=== PATIENT | male | born 1945 | race Caucasian/White ===

== ENCOUNTER 2024-01-01 10:15 | Outpatient (RCR) | payer MEDICARE, BC, SELFPAY | END 2024-02-22 15:43 | disposition home or self-care (01) | PROVIDERS: PCP Surgery; Visit Provider Surgery | DX: M25.552 Pain in left hip (principal); Z51.89 Encounter for other specified aftercare | CPT/HCPCS: 97110; 97161 ==

== ENCOUNTER 2024-11-10 18:13 | Emergency (ER) | payer MEDICARE, BC, SELFPAY ==
--- OUTSIDE RECORDS SUMMARY | 2024-11-10 18:15 | XMS_ITS | Encounter Summary ---
Author Organization [facility] Address [address] [place] [address] Care Team Providers Care Advice Nurse Name Role Phone Unavailable Primary Care Provider Unavailabl e Reason for Referral * Outpatient (Routine) - Closed Specialty Diagnoses / Procedures Referred By Contac t Referred To Contact Diagnoses Obstruction Intestinal (HCC) Procedures URO Urethral cath removal voiding trial (VT) Tiffany Toure M.D., M.S. [address] [place] [phone] Phone: tel: fax: [facility] Referral ID Status Reason Start Date Expiration Date Visits Re quested Visits Authorized [id number] Closed 09/17/2024 12/18/2025 1 1 * Outpatient (Routine) - Closed Specialty Diagnoses / Procedures Referred By Contac t Referred To Contact Urology Diagnoses Obstruction Intestinal (HCC) Tiffany Toure M.D., M.S. [address] [place] [phone] Phone: tel: fax: Eusebia Dhaliwal M.D. [address] [place] [phone] Phone: tel: fax: Referral ID Status Reason Start Date Expiration Date Visits Re quested Visits Authorized [id number] Closed 09/17/2024 03/19/2026 1 1 Encounter Details Date Type Department Care Team (Late st Contact Info) Description 09/17/2024 Clinical Communication [facility] [address] [place] [phone] JulesRenitachencho Linn Social History Tobacco Use Types Packs/Day Years Used Date Smoking Tobacco: Former Cigarettes 0 06/26/1966 - 04/24/1980 Smokeless Tobacco: Never Alcohol Use Standard Drinks/Week Comments Yes 12 (1 standard drink = 0.6 oz pu re alcohol) [facility] Utilities Answer Date Recorded In the past 12 months has [facility] [employer], gas, oil, or water [employer] threatened to shut off services in your home? No 09/17/2024 Humiliation, Afraid, Rape, and Kick questionnair e Answer Date Recorded Within the last year, have y ou been afraid of your partner or ex-partner? No 09/17/2024 Within the last year, have y ou been humiliated or emotionally abused in other ways by your partner or ex-partner? No Within the last year, have y ou been kicked, hit, slapped, or otherwise physically hurt by your partner or ex-partner? No 09/17/2024 Within the last year, have y ou been raped or forced to have any kind of sexual activity by your partner or ex-partner? No 09/17/2024 Exercise Vital Sign Answer Date Recorde d On average, how many days pe r week do you engage in moderate to strenuous exercise (like a brisk walk)? 3 days 04/20/2024 On average, how many minutes do you engage in exercise at this level? 60 min 04/20/2024 Hunger Vital Sign Answer Date Recorded Within the past 12 months, y ou worried that your food would run out before you got the money to buy more. Never true 09/18/19 25 Within the past 12 months, t he food you bought just didn't last and you didn't have money to get more. Never true 09/17/2024 PRAPARE - Transportation Answer Date Re corded In the past 12 months, has l ack of transportation kept you from medical appointments or from getting medications? No 08/25 In the past 12 months, has l ack of transportation kept you from meetings, work, or from getting things needed for daily living? No 09/17/2024 Nutrition Answer Date Recorded On average, how many serving s of fruits and vegetables do you eat per day (serving size is equal to 1 cup or approximately the size of a tennis ball)? 3-5 04/20/2024 Dental Answer Date Recorded Dental: Regular Dentist Yes 04/20/20 Employment Answer Date Recorded Employment status Retired 04/20/2024 Housing Stability Answer Date Recorded What is your living situation today? 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 Gender Identity Male 04/20/2024 9:38 AM CDT Sexual Orientation Straight 04/20/2024 9: 38 AM CDT documented as of this encounter Plan of Treatment Scheduled Orders Name Type Priority Associated Diagnoses Orde r Schedule URO Urethral cath removal voiding trial (VT) Procedure Routine Obstruction Intestinal (HCC) Expected: 10/08/2024, Expires: 12/18/2025 Scheduled Referrals Name Type Priority Associated Diagnoses Orde r Schedule Urology office visit (clinic) Outpatient Referral Routine Obstruction Intestinal (HCC) Expected: 10/08/2024, Expires: 12/18/2025 documented as of this encounter Visit Diagnoses Diagnosis Obstruction Intestinal (HCC)- Primary documented in this encounter
--- OUTSIDE RECORDS SUMMARY | 2024-11-10 18:15 | XMS_ITS | Encounter Summary ---
Author Organization [facility] Address [address] [place] [address] Care Team Providers Care Roofer Assistant Name Role Phone Unavailable Primary Care Provider Unavailabl e Reason for Referral * MRI/CAT/PET Scan (Routine) - Closed Specialty Diagnoses / Procedures Referred By Drew warren Referred To Contact Radiology Diagnoses Personal History Of Malignant Neoplasm Of Bladder Procedures CT Cystogram without IV Contrast Zeinab Frederick M.D. [address] [place] [phone] Phone: tel: fax: [facility] Referral ID Status Reason Start Date Expiration Date Visits Re quested Visits Authorized [id number] Closed 09/17/2024 12/18/2025 1 1 Encounter Details Date Type Department Care Team (Late st Contact Info) Description 09/17/2024 Orders Only Department of Urology in [place], [place] [address] [place] [phone] Zeinab Frederick M.D. [address] [place] [phone] Personal History Of Malignant Neoplasm Of Bladder (Primary Dx) Social History Tobacco Use Types Packs/Day Years Used Date Smoking Tobacco: Former Cigarettes 0 06/26/1966 - 04/24/1980 Smokeless Tobacco: Never Alcohol Use Standard Drinks/Week Comments Yes 12 (1 standard drink = 0.6 oz pu re alcohol) [facility] Utilities Answer Date Recorded In the past 12 months has th e [employer], gas, oil, or water [employer] threatened to shut off services in your [...] money to buy more. Never true 09/18/19 Within the past 12 months, t he [...] your living situation today? 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 No evidence of contrast leak from the neobladder. Narrative 10/08/2024 9:35 AM CDT EXAM: CT CYSTOGRAM WITHOUT IV CONTRAST COMPARISON: CT abdomen and pelvis 09/20/2024. 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 Indwelling catheter and small amount of air within the ileal neobladder. No evidence of contrast leak from the neobladder. No suspicious neobladder lesions. Colonic diverticula. Multiple small bowel anastomoses. Visualized small and large bowel are normal in caliber. Pelvic surgical clips. Cutaneous tonia. Cholelithiasis seen on the topogram. Procedure Note Phyllis Coronel M.D. - 10/08/2024 EXAM: CT CYSTOGRAM WITHOUT IV CONTRAST COMPARISON: CT abdomen and pelvis 09/20/2024. 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 Indwellingcatheter and small amount of air within the ileal neobladder. No evidenceof contrast leak from the neobladder. No suspicious neobladder lesions. Colonic diverticula. Multiple small bowel anastomoses. Visualized smalland large bowel are normal in caliber. Pelvic surgical clips. Cutaneousstaples. Cholelithiasis seen on the topogram. 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 No evidenceof contrast leak from the neobladder. us Zeinab Frederick M.D. IMG CT PROCEDURES Joana l Result documented in this encounter Visit Diagnoses Diagnosis Personal History Of Malignant Neoplasm Of Bladder- Primary Personal History Of Malignant Neoplasm Of Bladder documented in this encounter
--- OUTSIDE RECORDS SUMMARY | 2024-11-10 18:15 | XMS_ITS | Clinical Summary ---
Author Organization [facility] Address [address] [place] [id number] Care Team Providers Care Job Press Operator Name Role Phone Montrell Reeder MD Primary Care Provider [phone] Allergies Active Allergy Reactions Criticality Noted Date Comments Nitrofurantoin 04/14/2014 Sores in mouth Morphine 04/14/2014 Makes pt foggy; no allergy Penicillins Itching 04/11/2014 With high doses only Sulfa Antibiotics Itching 04/11/2014 Medications Alprostadil, Vasodilator, (EDEX IC) 2.5 mcg by INTRACAVERNOSAL route daily Active multivitamin, therapeutic with minerals (MULTI-VITAMIN) TABS Take 1 tablet by mouth daily Active PRAVASTATIN SODIUM PO Take 40 mg by mouth daily Active TADALAFIL PO Take 20 mg by mouth as needed for erectile dysfunction Active Social History Tobacco Use Types Packs/Day Years Used Date Smoking Tobacco: Former Cigarettes Q uit: 04/15/1980 Alcohol Use Standard Drinks/Week Comments Yes 0 (1 standard drink = 0.6 oz pur e alcohol) occas Adolescent Education Answer Date Record ed Getting School Help Needed Not on file 04/02 Sex and Gender Information Value Date Recorded Sex Assigned at Not on file 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 Gender Identity Not on file Sexual Orientation Not on file Last Filed Vital Signs Vital Sign Reading Time Taken Comments Blood Pressure 164/105 08/21/2020 4:15 PM HOT BOX CHECKER Pulse 77 08/21/2020 4:15 PM HOT BOX CHECKER Temperature 36.7 C (98.1 F) 08/21/2020 12:29 PM HOT BOX CHECKER Respiratory Rate 8 08/21/2020 4:15 PM HOT BOX CHECKER Oxygen Saturation 96% 08/21/2020 4:15 PM HOT BOX CHECKER Inhaled Oxygen Concentration - - Weight 85.6 kg (188 lb 11.2 oz) 04/15/2014 6:34 AM CDT Height 182.9 cm (6' 0.01) 04/15/2014 6:34 AM CD T Body Mass Index 25.59 04/15/2014 6:34 AM CDT Plan of Treatment Not on file Insurance [facility] MEDICARE Care Teams Job Press Operator Relationship Specialty Start Date End Date Montrell Reeder MD [address] [place] [address] PCP - General 08/21/20
--- OUTSIDE RECORDS SUMMARY | 2024-11-10 18:15 | XMS_ITS | Encounter Summary ---
Author Organization [facility] Address [address] [place] [address] Care Team Providers Care Human Services Assistant Name Role Phone Unavailable Primary Care Provider Unavailabl e Reason for Referral * MRI/CAT/PET Scan (Routine) - Closed Specialty Diagnoses / Procedures Referred By Drew warren Referred To Contact Radiology Diagnoses Personal History Of Malignant Neoplasm Of Bladder Procedures CT Cystogram without IV Contrast Zeinab Frederick M.D. [address] [place] [address] Phone: tel: fax: [facility] Referral ID Status Reason Start Date Expiration Date Visits Re quested Visits Authorized [id number] Closed 09/17/2024 12/18/2025 1 1 Reason for Visit * MRI/CAT/PET Scan (Routine) - Closed Specialty Diagnoses / Procedures Referred By Drew warren Referred To Contact Radiology Diagnoses Personal History Of Malignant Neoplasm Of Bladder Procedures CT Cystogram without IV Contrast Zeinab Frederick M.D. [address] [place] [address] Phone: tel: fax: [facility] Referral ID Status Reason Start Date Expiration Date Visits Re quested Visits Authorized [id number] Closed 09/17/2024 12/18/2025 1 1 Encounter Details Date Type Department Care Team (Latest Contact Info) Description 10/08/2024 7:13 AM CDT - 10/08/2024 8:59 AM CDT Hospital Encounter Department of Radiology, [facility], in [place], [place] [address] [place] [phone] Zeinab Frederick M.D. [address] [place] [phone] Personal History Of Malignant Neoplasm Of Bladder Discharge Disposition: Home or Self Care Social History Tobacco Use Types Packs/Day Years Used Date Smoking Tobacco: Former Cigarettes 0 06/26/1966 - 04/24/1980 Smokeless Tobacco: Never Alcohol Use Standard Drinks/Week Comments Yes 12 (1 standard drink = 0.6 oz pu re alcohol) [facility] Utilities Answer Date Recorded In the past 12 months has [facility] [employer], gas, oil, or water [employer] threatened to shut off services in your [...] your living situation today? 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 09/25/2024 aspirin 81 mg capsule Take 81 mg by mouth at bedtime. atorvastatin (Lipitor) 40 mg tablet Take 40 mg by mouth at bedtime. mirtazapine (Remeron) 15 mg tablet Take 1 tablet by mouth at bedtime. MULTIVITAMIN ORAL Take 1 tablet by mouth daily. nitroglycerin (Nitrostat) 0.[address] 0.4 mg under the tongue as needed for chest pain. sennosides-docusa te sodium (Senokot-S) 8.6-50 mg per tablet Take 2 tablets by mouth at bedtime as needed for constipation. 09/25/2024 documented as of this encounter Plan of Treatment Not on file documented as of this encounter Procedures Procedure Name Priority Date/Time Associated Diagnosis Comments CT CYSTOGRAM WITHOUT IV CONTRAST RAD - Routine (most inpatients and all outpatients) 10/08/2024 9:21 AM CDT Personal History Of Malignant Neoplasm Of Bladder documented in this encounter Results * CT Cystogram without [...] No evidenceof contrast leak from the neobladder. Zeinab TAPIA CT PROCEDURES Joana l Result documented in this encounter Visit Diagnoses Diagnosis Personal History Of Malignant Neoplasm Of Bladder documented in this encounter Administered Medications Inactive Administered Medications - up to 3 most recent administrations Medication Order MAR Action Action Date Dose Rate Site iohexol dilution solution 7,500 mg (Omnipaque) 7,500 mg, intravesical, Once in imaging, contrast, Starting on 10/08/24 at 0736, For 1 dose, Imaging Protocol Orders, Dose of 7,500 mg iodine will display as 25 mL of 300 mg iodine/mL contrast for billing. Mix iohexol 300 (Omnipaque 300) 25 mL with 250 mL NaCl 0.9% for a total volume of 275 mLs. Procedure requires 2 bags (i.e. 2 orders). Given 10/08/2024 9:16 AM CDT 7,500 mg documented in this encounter
--- OUTSIDE RECORDS SUMMARY | 2024-11-10 18:15 | XMS_ITS | Data Portability ---
Author Organization [place] [facility] [place] [facility] Address [address] [place] [address] Care Team Providers Care Software Engineering Associate Manager Name Role Phone ANJEL COYLE Primary Care Provider [phone] Assessment No assessment recorded. Plan of Treatment Reminders Order Date Submit Date Provider Last Modified By Organization Details Last Modified Time Details Appointments None record ed. Lab urinal ysis, dipsti ck 2023 024 [facility], [address], [place], [address], 4 15:52:10 [facility] gy, [facility], [address] [place] [address], [address], 4 09:30:45 urinal ysis, dipsti ck 2022 023 [facility], [address], [place], [address], 3 15:04:57 Referral None record ed. Procedures cystos copy (PROC) 2023 024 rebbert Not available 4 09:07:00 cystos copy (PROC) 2022 023 rebbert Not available 3 08:08:53 Surgeries None record ed. Imaging CT, urogra m 2022 023 renato mcdonald [facility], [address], [place], [address], 4 09:02:55 Medication Orders None record ed. Patient TargetsNo targets recorded. Patient InstructionsNo instructions recorded. Reason for Referral None Reported. Results Created Date Observation Date Name Description Value Unit Range Abnormal Flag Note LastModifiedBy Organization Detail LastModifiedTime 12/06/1912/05/2022 urina lysis , dipst ick Color-Status Yellow Not Available [facility] [address], [place], [address], 12/05/2022 15:03:53 12/06/19 23 12/05/2022 urina lysis , dipst ick Clarity-Stat us Clear Not Available [facility] [address], [place], [address], 12/05/2022 15:03:53 12/06/19 23 12/05/2022 urina lysis , dipst ick Glucose-Stat us Negati ve Not Available [facility] [address], [place], [address], 12/05/2022 15:03:53 12/06/19 23 12/05/2022 urina lysis , dipst ick Nitrates-Sta tus negati ve Not Available [facility] [address], [place], [address], 12/05/2022 15:03:53 12/06/19 23 12/05/2022 urina lysis , dipst ick Blood-Status Trace Not Available [facility] [address], [place], [address], 12/05/2022 15:03:53 12/06/19 23 12/05/2022 urina lysis , dipst ick Leuko-Status Negati ve Not Available [facility] [address], [place], [address], 12/05/2022 15:03:53 01/08/20 24 01/08/2024 urina lysis , dipst ick BLOOD Negati ve Not Available [facility] [address], [place], [address], 01/02/2024 11:19:37 01/08/20 24 01/08/2024 urina lysis , dipst ick BILIRUBIN Negati ve Not Available [facility] [address], [place], [address], 01/02/2024 11:19:37 01/08/20 24 01/08/2024 urina lysis , dipst ick UROBILINOGEN 0.2 mg/dL (Norm) Not Available [facility] [address], [place], [address], 01/02/2024 11:19:37 01/08/20 24 01/08/2024 urina lysis , dipst ick KETONES Negati ve Not Available [facility] [address], [place], [address], 01/02/2024 11:19:37 01/08/20 24 01/08/2024 urina lysis , dipst ick PROTEIN Negati ve Not Available [facility] [address], [place], [address], 01/02/2024 11:19:37 01/08/20 24 01/08/2024 urina lysis , dipst ick NITRITES Negati ve Not Available [facility] [address], [place], [address], 01/02/2024 11:19:37 01/08/20 24 01/08/2024 urina lysis , dipst ick GLUCOSE Negati ve Not Available [facility] [address], [place], [address], 01/02/2024 11:19:37 01/08/20 24 01/08/2024 urina lysis , dipst ick p.H. 6.0 Not Available [facility] [address], [place], [address], 01/02/2024 11:19:37 01/08/20 24 01/08/2024 urina lysis , dipst ick S.G. (Specific [place]) 1.015 Not Available [facility] [address], [place], [address], 01/02/2024 11:19:37 01/08/20 24 01/08/2024 urina lysis , dipst ick LEUKOCYTES Negati ve Not Available [facility] [address], [place], [address], 01/02/2024 11:19:37 Result Notes None recorded. Procedures Surgical History Date Name Laterality Status Provider Name and Address Organization Details Recorded Time 01/08/2024 Cystoscopy- male completed Tim Wasserman MD [address] [place] [address],[address], [address], [facility] 01/08/2024 21:11:05 01/08/2024 Keflex post Cysto completed Keny anne [facility] 12/29/2023 13:51:52 12/05/2022 Cystoscopy- male completed Tim Wasserman MD [address] [place] [address],[address], [address], [facility] 12/05/2022 22:56:42 Imaging Results None recorded. Procedure Notes None recorded. Medical Equipment None Reported. Allergies Allergen ID Allergen Name Allergen Category Reaction Reaction Severity Criticality Documentation Date Start Date Code Code System Note Provider Name and Address Organization Details Recorded Time 777864 Substance with sulfonami de structure and antibacte rial mechanism of action (substanc e) medicatio n rash moderate Not available 12/05/2022 78123 2884 SNOMED Tim Wasserman MD [address] [place] [address],[address] [place] [address], [phone], [facility] 3 15:00:45 [id number] Macrodant in medicatio n rash Not available Not available 12/05/2022 4 RxNorm Tim Wasserman MD [address] [place] [address],[address] [place] [address], [phone], [facility] 3 15:01:18 Medications Name Sig Start Date Stop Date Status Note LastModified by Organization Details LastModified Time atorvastati n 40 mg tablet TAKE ONE TABLET BY MOUTH EVERY DAY active Not Available Not Available No t Available hydrocodone 5 mg-acetamin ophen 325 mg tablet TAKE ONE TABLET BY MOUTH EVERY 8 HOURS PREFERABL Y BEFORE BED 01/07 completed Not Available Not Available Not Available oxycodone-a cetaminophe n 5 mg-325 mg tablet TAKE ONE TO TWO TABLETS BY MOUTH EVERY 4 HOURS NEEDED FOR PAIN MAX ACETAMINO PHEN DOSE IS 4000 MG IN 24 HOURS 01/07 completed Not Available Not Available Not Available prednisolon e acetate 1 % eye drops,suspe nsion PLACE 1 DROP INTO RIGHT EYE THREE TIMES A DAY FOR 7 DAYS THEN INSTILL ONE DROP TO THE AFFECTED EYE(S) EVERY DAY FOR 7 DAYS THEN DISCONTIN UE active Not Available Not Available No t Available nitroglycer in 0.[address] 1 TABLET UNDER THE TONGUE AT THE 1ST SIGN OF ATTACK. IF PAIN IS UNRELIEVE D OR WORSENED 5 MINS AFTER 1ST DOSE, PROMPT MEDICAL ASSISTANC active Not Available Not Available No t Available mirtazapine 15 mg tablet TAKE ONE TABLET BY MOUTH AT BEDTIME active Not Available Not Available No t Available Vitals Date Recorded Body height Body mass index (BMI) Body weight Provider Name and Address Organization Details Last Updated DateTime 12/05/2022 180.34 cm 25.8 kg/m2 55503.59 g Tim Wasserman MD [address] [place] [address],[address] [place] [address], [phone] 12/05/2022 14:59:48 Date Recorded Body height Body mass index (BMI) Body weight Provider Name and Address Organization Details Last Updated DateTime 01/08/2024 180.34 cm 25.8 kg/m2 51070.59 g Tim Wasserman MD [address] [place] [address],[address], [place] [facility] 01/08/2024 15:50:20 Social History Question Answer Notes LastModified by Organizat ion Details LastModified Time Tobacco Smoking Status Former Smoker Tim Wasserman MD [address] [place] [address],[address], [facility] 12/05/2022 15:02:46 What Is Your Level Of Caffeine Consumption? Moderate Information not available 12/05/2022 When Did You Quit Smoking? 16+yearssince lastcigarette Information not available 12/05/2022 Recreational Drug Use No Information not available 12/05/2022 What Was The Date Of Your Most Recent Tobacco Screening? 01/08/2024 Information not available 01/08/2024 What Is Your Relationship Status? Information not available 12/05/2022 Has Tobacco Cessation Counseling Been Provided? No Information not available 12/05/2022 How Many Years Have You Smoked Tobacco? 5 Information not available 12/05/2022 Sex: Unknown Functional Status Question Answer Note LastModified by Organizat ion Details LastModified Time How many times per week do you consume alcohol? 3-4 times per week Information not available 12/05/2022 Do you use any illicit or recreational drugs? No Information not available 12/05/2022 What is your level of alcohol consumption? Moderate Information not available 12/05/2022 Are you currently employed? No Information not available 12/05/2022 Mental Status None recorded. Family History Nothing Reported. Medical History Condition Response Cancer Y High Cholesterol Y Immunizations Vaccine Type Date Status Note Provider Nam e and Address Organization Details Recorded Time Influenza, adjuvanted, quadrivalent, PF 3 completed Tim Wasserman MD [address] [place] [address],[address], [address], [facility] 01/08/2024 15:50:25 COVID-19, mRNA, LNP-S, PF, 50 mcg/0.5 mL 3 completed Tim Wasserman MD [address] [place] [address],[address], [address], [facility] 01/08/2024 15:50:26 Influenza, adjuvanted, trivalent, PF 8 completed Neela Allar null, [facility] 05/22/2023 17:18:24 zoster recombinant 0 completed [facility] All[facility] null, [facility] 05/22/[facility]23 17:18:24 zoster recombinant 9 completed Neela Allar null, [facility] 05/22/2023 17:18:24 Influenza, high-dose, quadrivalent, PF 0 completed Neela Allar null, [facility] 05/22/2023 17:18:24 Influenza, adjuvanted, quadrivalent, PF 2 completed Neela Allar null, [facility] 05/22/2023 17:18:24 Influenza, adjuvanted, quadrivalent, PF 2 completed Neela Allar null, [facility] 05/22/2023 17:18:24 COVID-19, mRNA, LNP-S, PF, 30 mcg/0.3 mL dose 1 completed Neela Allar null, [facility] 05/22/2023 17:18:24 COVID-19, mRNA, LNP-S, PF, 30 mcg/0.3 mL dose 1 completed Neela Allar null, [facility] 05/22/2023 17:18:24 COVID-19, mRNA, LNP-S, PF, 30 mcg/0.3 mL dose 1 completed Neela Allar null, [facility] 05/22/2023 17:18:24 COVID-19, mRNA, LNP-S, bivalent, PF, 30 mcg/0.3 mL dose 2 completed Neela Allar null, [facility] 05/22/2023 17:18:24 pneumococcal polysaccharide PPV23 3 completed Neela Allar null, [facility] 05/22/2023 17:18:24 Tdap 7 completed Neela Allar null, [facility] 05/22/2023 17:18:24 Tdap 8 completed Neela Allar null, [facility] 05/22/2023 17:18:24 Novel Uagjydond-[id number], all formulations 0 completed Neela Allar null, [facility] 05/22/2023 17:18:24 Pneumococcal conjugate PCV 13 6 completed Neela Allar null, [facility] 05/22/2023 17:18:24 zoster live 8 completed Neela Allar null, [facility] 05/22/2023 17:18:24 Influenza, high-dose, trivalent, PF 6 completed Neela Allar null, [facility] 05/22/2023 17:18:24 Influenza, high-dose, trivalent, PF 4 completed Neela Allar null, [facility] 05/22/2023 17:18:24 Influenza, high-dose, trivalent, PF 9 completed Neela Allar null, [facility] 05/22/2023 17:18:24 Influenza, high-dose, trivalent, PF 8 completed Neela Allar null, [facility] 05/22/2023 17:18:24 Influenza, split virus, trivalent, preservative 0 completed Neela Allar null, [facility] 05/22/2023 17:18:24 Influenza, split virus, trivalent, preservative 2 completed Neela Allar null, [facility] 05/22/2023 17:18:24 Influenza, split virus, trivalent, preservative 3 completed Neela Allar null, [facility] 05/22/2023 17:18:24 Influenza, split virus, trivalent, PF 1 completed Neela Allar null, [facility] 05/22/2023 17:18:24 Influenza, split virus, quadrivalent, PF 5 completed Neela Allar null, [facility] 05/22/2023 17:18:24 Past Encounters Encounter ID Performer Location Encounter Start Date Encounter Closed Date Diagnosis/Indication Diagnosis SNOMED-CT Code Diagnosis ICD10 Code Diagnosis Note [id number] Tim Wasserman MD [address] [place] [address] 12/05/2022 14:33:00 12/09/2022 17:35:46 History of malignant neoplasm of bladder 197452957 Z85.51 1. H/O Bladder cancer- s/p Radical cystoprost atectomy with neobladder - 1993- check urine cytology- no tumors seen in neobladder - F/U in 1 year with Cystoscopy and urine cytology [facility] Erectile d ysfunction following radical prostatectomy [id number] 51593 N52.31 2. Erectile dysfunctio n- due to radical cystectomy - observe (could try Trimix if he wishes) [id number] Tim Wasserman MD [facility] [address] [place] [address] 01/08/2024 15:31:46 01/16/2024 11:33:41 History of malignant neoplasm of bladder 141765334 Z85.51 1. H/O Bladder cancer- s/p Radical cystoprost atectomy with neobladder - 1993- reviewed CT Urogram (01/04/24) images - no stones, renal masses, hydronephr osis , or filling defects - no evidence of recurrence - check urine cytology- Cystoscopy (01/08/24) - no tumors seen in neobladder - F/U in 1 year [facility] Erectile d ysfunction following radical prostatectomy [id number] 55565 N52.31 2. Erectile dysfunctio n- due to radical cystectomy - observe (could try Trimix if he wishes) Health Concerns Section Related Observation LastModified by Organization Detai ls LastModified Time None Recorded Concern Status LastModified by Organization Details LastModified Time None Recorded Advance Directives Directive None Recorded Payers Insurance Date Sequence Insurance Name Policy Number Policy Gilbert Covered Member ID Gilbert Member ID Guarantor Name 01/16/2024 1 [place] MEDICARE COST [id number] Genaro Blanco [id number] Genaro Blanco Notes Date Note Type Note Provider Name and Address Organization Details Recorded Time 12/05/2022 text/html 77 yo male with H/O bladder cancer - s/p Radical cystectomy with neobladder at the [facility] in 1993. He has had no recurrence to date. He has H/O erectile dysfunction - has used Edex 10 mcg prn in the past. 08/17/20 - He presents for follow-up on bladder cancer. He denies abdominal or flank pain. He reports no change in urination. He voids every 3-5 hours during the day and 0-1x/night. He has some hesitancy - denies dysuria or hematuria. 12/05/22 - He presents for follow-up on bladder cancer. He voids every 3-5 hours during the day and 0-1x/night. He has some hesitancy - denies dysuria or hematuria.- UA - trace blood - no LE PSA - < 0.03 (11/22/13)- < 0.03 (01/22/18)- < 0.03 (06/30/20)- < 0. 1 (10/24/22) CT Urogram (04/27/18) - no evidence of recurrence - no filling defectsCT Urogram (08/12/20) - no evidence of recurrence - no filling defects Tim Wasserman MD [address] [place] [address],[address], [address], [facility] 12/05/2022 22:59:06 01/08/2024 text/html 78 yo male with H/O bladder cancer - s/p Radical cystectomy with neobladder at the [facility] in 1993. He has had no recurrence to date. He has H/O erectile dysfunction - has used Edex 10 mcg prn in the past. 08/17/20 - He presents for follow-up on bladder cancer. He denies abdominal or flank pain. He reports no change in urination. He voids every 3-5 hours during the day and 0-1x/night. He has some hesitancy - denies dysuria or hematuria. 12/05/22 - He presents for follow-up on bladder cancer. He voids every 3-5 hours during the day and 0-1x/night. He has some hesitancy - denies dysuria or hematuria. 01/08/24-He presents for follow-up on bladder cancer.- UA - no blood - no LE- CT Urogram (01/04/24) - no stones, renal masses, hydronephrosis , or filling defects - no evidence of recurrence PSA - < 0.03 (11/22/13)- < 0.03 (01/22/18)- < 0.03 (06/30/20)- < 0. 1 (10/24/22) CT Urogram (04/27/18) - no evidence of recurrence - no filling defectsCT Urogram (08/12/20) - no evidence of recurrence - no filling defectsCT Urogram (01/04/24) - no stones, renal masses, hydronephrosis , or filling defects - no evidence of recurrence Tim Wasserman MD [address], [place], [address], [facility] 01/08/2024 21:12:40
--- OUTSIDE RECORDS SUMMARY | 2024-11-10 18:15 | XMS_ITS | Encounter Summary ---
Author Organization [facility] Address [address] [place] [address] Care Team Providers Care Rail Transit Operator Name Role Phone Unavailable Primary Care Provider Unavailabl e Reason for Visit * Outpatient (Routine) - Closed Specialty Diagnoses / Procedures Referred By Drew warren Referred To Contact Urology Diagnoses Obstruction Intestinal (HCC) Tiffany Toure M.D., M.S. [address] [place] [phone] Phone: tel: fax: Eusebia Dhaliwal M.D. [address] [place] [phone] Phone: tel: fax: Referral ID Status Reason Start Date Expiration Date Visits Re quested Visits Authorized [id number] Closed 09/17/2024 03/19/2026 1 1 Encounter Details Date Type Department Care Team (Late st Contact Info) Description 10/08/2024 10:30 AM CDT Office Visit Department of Urology in [place], [place] [address] [place] [phone] Eusebia Dhaliwal M.D. [address] [place] [phone] Injury Bladder Initial (Primary Dx); Neobladder Status Post; Obstruction Intestinal (HCC) Social History Tobacco Use Types Packs/Day Years Used Date Smoking Tobacco: Former Cigarettes 0 06/26/1966 - 04/24/1980 Smokeless Tobacco: Never Alcohol Use Standard Drinks/Week Comments Yes 12 (1 standard drink = 0.6 oz pu re alcohol) [facility] Utilities Answer Date Recorded In the past 12 months has th e Elli, gas, oil, or water [employer] threatened to shut off services in your [...] your living situation today? I have a [facility] place to live 09/17/2024 Sex and Gender Information Value Date Recorded Sex Assigned at Male 04/20/2024 9:38 AM CDT Legal Sex Male 9:54 AM [employer] Gender Identity Male 04/20/2024 9:38 AM CDT Sexual Orientation Straight 04/20/2024 9: 38 AM CDT documented as of this encounter Progress Notes * Eusebia Dhaliwal M.D. - 10/08/2024 10:30 AM CDT SUBJECTIVE CHIEF COMPLAINT/REASON FOR VISIT Cystorrhaphy f/u HISTORY OF PRESENT ILLNESS 79M s/p radical cystectomy with ileal neobladder in 1993 who sustained a 6 cm cystotomy during laparotomy with lysis of adhesions, small bowel resection for bowel obstruction on 09/16. This was repaired by Dr. Briggs from [facility] and we assessed in the OR afterward. DOMINICK was placed, and removed after confirming low DOMINICK Cr of 0.9, consistent with serum Cr. Presents today for evaluation for Matos catheter removal after CT cystogram. He typically manages his neobladder with spontaneous voiding only. No stones or infections or otherissues. OBJECTIVE PHYSICAL EXAM Abdominal incisions healing well, tonia in place. Nondistended. Matos in place. Imaging: I personally reviewed and interpreted patient's imaging as described below. CT cystogram demonstrates no evidence of leak ASSESSMENT / PLAN #1 Injury Bladder Initial #2 Neobladder Status Post It was a pleasure to meet with Mr. Blanco today in clinic. He had an injury of his neobladder duringadhesiolysis and small bowel resection on 09/16. No evidence of leak on CT cystogram today. He is doing remarkably well with his neobladder since 1993. Can continue with his normal regimen ofspontaneous voiding. Discussed symptoms of urine leak if he has any issues after catheter removal. Plan: - ok for UCO/VT today - Urology follow up prn Signed by: Eusebia Dhaliwal M.D. 10/07/2024 9:14 PM CDT documented in this encounter Plan of Treatment Not on file documented as of this encounter Visit Diagnoses Diagnosis Injury Bladder Initial- Primary Neobladder Status Post Obstruction Intestinal (HCC) documented in this encounter
--- OUTSIDE RECORDS SUMMARY | 2024-11-10 18:16 | XMS_ITS | Encounter Summary ---
Author Organization [facility] Address [address] [place] [address] Care Team Providers Care Marine Cargo Surveyor Name Role Phone Unavailable Primary Care Provider Unavailabl e Reason for Visit * Reason Comments Follow-up * Outpatient (Routine) - Closed Specialty Diagnoses / Procedures Referred By Drew warren Referred To Contact Trauma Critical Care and General Surgery Diagnoses Obstruction Intestinal (HCC) Resection Small Bowel Status Post Hetal Parker APRN, C.NMiracle., M.S.N. [address] [place] [phone] Phone: tel: fax: [facility] Referral ID Status Reason Start Date Expiration Date Visits Re quested Visits Authorized [id number] Closed 09/24/2024 03/26/2026 1 1 Encounter Details Date Type Department Care Team (Late st Contact Info) Description 10/08/2024 3:30 PM CDT Office Visit Division of Trauma Critical Care and General Surgery in [place], [place] [address] [place] [phone] Hetal Parker APRN, C.N.P., M.S.N. [address] [place] [phone] Leidy Escalona C.N.P., R.N. [address] [place] [address] Obstruction Intestinal (HCC); Resection Small Bowel Status Post Social History Tobacco Use Types Packs/Day Years Used Date Smoking Tobacco: Former Cigarettes 0 06/26/1966 - 04/24/1980 Smokeless Tobacco: Never Alcohol Use Standard Drinks/Week Comments Yes 12 (1 standard drink = 0.6 oz pu re alcohol) [facility] Utilities Answer Date Recorded In the past 12 months has e [employer], oil, or water [employer] threatened to shut off services in your [...] your living situation today? 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 - 10/08/2024 3:30 PM CDT SUBJECTIVE CHIEF COMPLAINT / REASON FOR VISIT Genaro Blanco is a 79 y.o. male who presents for evaluation of abdomen following surgery. HISTORY OF PRESENT ILLNESS Mr. Blanco is a pleasant 79 y/o s/p robotic-assisted abdominal exploration, conversion to open laparotomy, HETAL, repair of cystotomy, and small bowel resection 09/16/2024. He was closed at port sites and midline incision with tonia. He is here for planned return. He states that he remains active with weight restrictions. He has minimal abdominal discomfort. He denies any redness or drainage at surgical sites. He denies nausea, fever, or chills. He is tolerating diet well and voiding without issue, having regular bowel movements daily. He has no concerns. OBJECTIVE PHYSICAL EXAM Physical Exam General: alert, oriented, in no acute distress; lying on exam cart Pulmonary: unlabored breathing on room air Abdomen: soft, thin, nontender, nondistended; tonia at port sites and midline incision removed with ease; mild erythema, no drainage noted; CLAIMS ASSISTANT Extremities: warm and well perfused ASSESSMENT / PLAN #1 Recurrent small-bowel obstructions #2 Resection Small Bowel Status Post #3 Cystotomy with repair #4 History bladder cancer s/p cystoprostatectomy and neobladder in 1994 Patient is doing well post-operatively. All tonia removed and incisions healing well. Discussed continued weight restrictions and no immersion in water for instructed timeframe. Patient amendable to the plan. He has our contact information should he have any questions. He can be dismissed. 45 minutes spent in preparation, planning, and direct patient care today. documented in this encounter Plan of Treatment Not on file documented as of this encounter Visit Diagnoses Diagnosis Obstruction Intestinal (HCC) Resection Small Bowel Status Post documented in this encounter
--- OUTSIDE RECORDS SUMMARY | 2024-11-10 18:16 | XMS_ITS | Encounter Summary ---
Author Organization [facility] Address [address] [place] [address] Care Team Providers Care Brimming Machine Operator Name Role Phone Unavailable Primary Care Provider Unavailabl e Reason for Referral * Outpatient (Routine) - Closed Specialty Diagnoses / Procedures Referred By Drew warren Referred To Contact Diagnoses Injury Bladder Initial Neobladder Status Post Procedures URO Residual urine - ultrasound Tiffany Toure M.D., M.S. [address] [place] [address] Phone: tel: fax: [facility] Referral ID Status Reason Start Date Expiration Date Visits Re quested Visits Authorized [id number] Closed 10/08/2024 01/08/2026 1 1 Reason for Visit * Reason Comments Post-op Visit [facility] post colorectal surgery * Outpatient (Routine) - Closed Specialty Diagnoses / Procedures Referred By Drew warren Referred To Contact Diagnoses Obstruction Intestinal (HCC) Procedures URO Urethral cath removal voiding trial (VT) Tiffany Toure M.D., M.S. [address] [place] [address] Phone: tel: fax: [facility] Referral ID Status Reason Start Date Expiration Date Visits Re quested Visits Authorized [id number] Closed 09/17/2024 12/18/2025 1 1 Encounter Details Date Type Department Care Team (Late st Contact Info) Description 10/08/2024 1:00 PM CDT Procedure visit Department of Urology in [place], [place] [address] [place] [address] Tiffany Toure M.D., M.S. [address] [place] [address] Hannah Tafoya R.N. [address] [place] [address] Injury Bladder Initial (Primary Dx); Obstruction Intestinal (HCC); Neobladder Status Post Social History Tobacco Use Types Packs/Day Years Used Date Smoking Tobacco: Former Cigarettes 0 06/26/1966 - 04/24/1980 Smokeless Tobacco: Never Alcohol Use Standard Drinks/Week Comments Yes 12 (1 standard drink = 0.6 oz pu re alcohol) [facility] [employer] Answer Date Recorded In the past 12 months has [facility] [employer], gas, oil, or water [employer] threatened to shut off services in your [...] your living situation today? 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 - 10/08/2024 1:00 PM CDT CHIEF COMPLAINT Reason for visit, urinary catheter removal post: colorectal surgery on 09/16/24.Patient has a neobladder and injury occurred to neobladder during surgery. IMPRESSION/REPORT/PLAN Nursing Intervention: Patient presents with yellow urine in his catheter bag. Patient's neobladder was prefilled with about 225 ml's of normal saline. Catheter balloon was deflated and catheter removed intact. Patient voided about 131 ml's with postvoid residual of 162 ml's. Patient tolerated procedure well. Patient education: to push fluids , to return for a voiding check at 230 , and to return to clinic if having voiding issues if before 4PM, if after hours to report to their local emergency room if unable to void documented in this encounter Plan of Treatment Scheduled Orders Name Type Priority Associated Diagnoses Orde r Schedule URO Residual urine - ultrasound Procedure Routine Injury Bladder Initial Neobladder Status Post Expected: 10/08/2024, Expires: 01/07/2026 documented as of this encounter Visit Diagnoses Diagnosis Injury Bladder Initial- Primary Obstruction Intestinal (HCC) Neobladder Status Post documented in this encounter
--- OUTSIDE RECORDS SUMMARY | 2024-11-10 18:16 | XMS_ITS | Clinical Summary ---
Author Organization [facility] Address [address] [place] [address] Care Team Providers Care Waste Specialist Name Role Phone Montrell Reeder MD Primary Care Provider [phone] Allergies Active Allergy Reactions Criticality Noted Date Comments Nitrofurantoin Other - Describe In Comment Field 07/08/2008 Sores in Mouth Morphine Other - Describe In Comment Field 07/08/2008 Feels out of control with medication Penicillins Rash 01/01/2007 Small does are ok, will break out in a rash if receives large doses Sulfa (Sulfonamide Antibiotics) 01/01/2007 Medications ASPIRIN 81 MG TAB, DELAYED RELEASE take 1 tablet (81 mg) by oral route once daily 0 7 Active atorvastatin (LIPITOR) 40 mg tabletIndicatio ns:Coronary artery disease due to lipid rich plaque Take 1 Tablet (40 mg) by mouth once daily. 90 Tablet 3 4 Active nitroglycerin (NITROSTAT) 0.4 mg sublingual tabletIndicatio ns:NSTEMI (non-ST elevated myocardial infarction) (HC) Place 1 Tablet (0.4 mg) under the tongue every 5 minutes if needed for Chest Pain. If patient requesting greater than 25 doses in 30 days, to provider to authorize 25 Tablet 4 Active mirtazapine (REMERON) 15 mg tabletIndicatio ns:Anxiety,Depr ession, major, single episode, moderate (HC) TAKE ONE TABLET BY MOUTH AT BEDTIME 90 Tablet 1 5 Active sennosides-docu sate (8.6-50 mg) tablet Take 2 Tablets by mouth once daily if needed. 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 FRANKY Hughes .................... 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 Overview (12/12/2014): Has neobladder made from SI Screen for colon cancer 05/09/2011 Overview (10/05/2021): CT Colonography in 2019 - repeat in 5 years Bunion 02/13/2008 Overview (02/13/2008): L Foot HYPERLIPIDEMIA MIXED 01/09/2007 Resolved Problems Problem Noted Date Diagnosed Date Resolved Date Malignant neoplasm of bladder neck 10/05/2021 10/05/2021 Chest pain 08/06/2020 10/05/2021 Angina 09/09/2016 07/01/2020 Chest pain 12/12/2014 10/05/2021 detention (current) use of anticoagulants 06/01/2012 04/07/2014 Elevated glucose 05/18/2012 10/05/2021 Malignant neoplasm of ab corona unspecified 07/06/2010 05/09/2011 Adjustment disorder with mix ed anxiety and depressed mood 05/05/2008 04/23/2010 Counseling for marital and p artner problems, unspecified 05/05/2008 06/29/2009 Routine General Medical Exam ination at a Health Care Facility 01/09/2007 10/05/2021 Overview (05/14/2012): colonoscopy 06/09/2001 incomplete; Ba En OK 07/2000; Recc: Recheck Guille q5yr. Guille negative 01/05/2006. BaRuy negative 04/2011 Encounters Date Type Department Care Team Description 10/01/2024 9:15 AM CDT Office Visit [facility] [address] [place] [address] Montrell Reeder MD Post-op 09/30/2024 Travel from Last 3 Months Immunizations Immunization Administration Dates Next Due Amb Influenza, Inact (High-d ose Quadrivalent) (Flu Clinic Only) 04/15/2020 COVID-19 VACCINE SPIKEVAX (M ODERNA 50MCG/0.5ML) 12YO+ PFS 05/11/2023 COVID-19 vaccine (MOO.COM-Bio NTech 30mcg/0.3mL) PF, MDV 04/28/2021,09/12/2020,08/18/2020 DTaP 01/09/2007 Influenza A (H1N1), Inactivated 07/15/2009 Influenza, High-dose Inactivated 019,04/25/2018,03/28/2016,2013 Influenza, IIV3 (Age 6-35 mos) 05/09/2011 Influenza, IIV3 (Age >=3 years) 06/06/20 13,05/14/2012,05/09/2011,2009,04/26/2008,04/26/2006 Influenza, IIV4 04/22/2015 Influenza, Inactivated AIIV4 (Age 65+ Years) Preserv Free 05/11/2023,06/03/2022,07/23/2021 Influenza, Inactivated IIV3 (Age 65+ Years) Preserv Free 04/25/2018,07/04/2017 Pneumococcal Poly,23-Valent (Pneumovax) 06/06/2013 Pneumococcal conj 13-Valent (Prevnar 13) 09/22/2015 Td (Age >=7 Years) 04/28/1997 Tdap 01/22/2018,01/09/2007 Zoster (Shingrix-RZV, recombinant) 06/27/2019, Zoster (Zostavax-ZVL, live) 02/13/2008 Family History Medical History Relation Name Comments Hypertension Father Rome Other Father Rome Glaucoma: Blind Diabetes Mother Kimmy Heart Disease Mother Kimmy Hypertension Mother Kimmy Anesthesia Problem No Family History Blood Disease No Family History Relation Name Status Comments Father Rome (Age 86) Mother Kimmy (Age 86) Sister 1 Tabby Alive Sister 2 Kizzy Alive Social History Tobacco Use Types Packs/Day Years Used Date Smoking Tobacco: Former Cigarettes 0.5 5 1 965 - 06/26/1969 Smokeless Tobacco: Never Tobacco Cessation:Counseling Given: Yes Alcohol Use Standard Drinks/Week Comments Yes 14 (1 standard drink = 0.6 oz pu re alcohol) very little - wine PHQ-2 Answer Date Recorded PHQ-2 TOTAL SCORE 0 11/24/2023 Social Connections Answer Date Recorded Do you often feel lonely or isolated from those around you? 0 09/30/2024 Financial Resource Strain Answer Date R ecorded Difficulty of Paying Living Expenses 3 09/30/2024 Difficulty of Paying Living Expenses Not on file 09/30/2024 Food Insecurity Answer Date Recorded Do you worry your food will run out before you are able to buy more? 1 09/30/2024 Transportation Needs Answer Date Record ed Does lack of transportation keep you from medica l appointments? 1 09/30/2024 Does lack of transportation keep you from work, meetings or getting things that you need? 1 09/30/2024 Housing Stability Answer Date Recorded What is your housing situation today? 1 09/30/2024 Utilities Answer Date Recorded Do you have trouble paying f or utilities (for example, heat, electricity, water, phone)? 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 [employer] Not on file Not on file Not on file Obstetrics History Last Filed Vital Signs Vital Sign Reading Time Taken Comments Blood Pressure 112/77 10/01/2024 9:09 AM CDT Pulse 89 10/01/2024 9:09 AM CDT Temperature 36.6 C (97.9 F) 10/12/2020 9:35 AM CDT Respiratory Rate 16 08/10/2020 2:50 PM DISPLAY SPECIALIST Oxygen Saturation 97% 10/01/2024 9:09 AM CDT Inhaled Oxygen Concentration - - Weight 81.1 kg (178 lb 11.2 oz) 10/01/2024 9:09 AM CDT Height 180.3 cm (5' 11) 11/24/2023 2:01 PM CDT Body Mass Index 24.92 11/24/2023 2:01 PM CDT Plan of Treatment Upcoming Encounters Date Type Department Care Team (Late st Contact Info) Description 11/25/2024 10:00 AM CDT Ancillary Procedure [facility] [address] [place] [phone] 12/03/2024 9:00 AM CDT Office Visit [facility] [address] [place] [address] Radha White MD [address] [address] Health Maintenance Due Date Last Done Comments RSV vaccine for adults or (1 - 1-dose 75+ series) 2022 COVID-19 vaccine series (2023- season) 2024 05/11/2023, 06/03/2022, 04/28/2021, Additional history exists BMI (ht and wt on same day) for age 18+ 11/23/2024 11/24/2023, 05/12/2023, 11/01/2022, Additional history exists Depression screening for age 12+ 11/23/2024 11/24/19 24 Medicare Wellness for age 65+ 11/24/2024, 11/01/2022, 10/05/2021, Additional history exists Influenza Vaccine (Season Ended) 2025 05/11/2023, 06/03/2022, 07/23/2021, Additional history exists Tetanus booster 01/23/2028 01/22/2018, 12/24, 04/28/1997 Pneumococcal series for age 50+ Completed 6, 06/06/2013 Hepatitis C screening for ag e 18-79 Completed 01/22/2018 Tdap Completed 01/22/2018, 01/09/2007 Zoster (shingles) series for age 50+ Completed 06/27/2019, 04/23/2019, 02/13/2008 Procedures Procedure Name Priority Date/Time Associated Diagnosis Comments ANTI HCV Routine 01/22/2018 12:02 PM CDT Need for hepatitis C screening test from Last 3 Months or Most Recently Relevant to Health Maintenance Results * ANTI HCV [89096.2] (01/22/2018 12:02 PM CDT) HEPATITIS C ANTIBODY Non-React elaine Non-React elaine 01/22/2018 8:30 PM CDT [facility] Comment:Antibodies to HCV no t detected; does not exclude the possibility of exposure to HCV. Blood BLOOD SPECIMEN / Unknown Venipuncture / Unknown 01/22/2018 12:02 PM CDT 01/22/2018 12:02 PM CDT us Montrell Reeder MD SEND OUTS Final Resu lt [facility] 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 Healthcare Directive 07/13/2021 022 * Full Code (Latest Code Status on File) Date Activated Date Inactivated Comments 08/07/2020 12:49 AM 08/07/2020 5:45 PM Question Answer Comments Code Status Discussion: Discussed * Full Code Date Activated Date Inactivated Comments 09/09/2016 8:55 AM 09/09/2016 8:02 PM * Full Code Date Activated Date Inactivated Comments 04/20/2015 5:36 PM 04/22/2015 3:40 PM * Full Code Date Activated Date Inactivated Comments 04/20/2015 5:09 PM 04/20/2015 5:36 PM * Full Code Date Activated Date Inactivated Comments 12/12/2014 12:12 PM 12/13/2014 2:18 PM Question Answer Comments Code Status Discussion: Discussed Care Teams Waste Specialist Relationship Specialty Start Date End Date Montrell Reeder MD [address] [place] [address] PCP - General Family Practice 01/04/16
--- OUTSIDE RECORDS SUMMARY | 2024-11-10 18:16 | XMS_ITS | Clinical Summary ---
Author Organization [facility] Address [address] [place] [address] Care Team Providers Care Director Asset Name Role Phone Unavailable Primary Care Provider Unavailabl e Source Comments Patient records contain information from all sites at [facility]. For routine questions regarding patient records, call [phone] during business hours, M-F 8:00 AM - 5:00 PM Central Time. Record requests for emergency care only can be directed to [phone] at any time.[facility] Allergies Active Allergy Reactions Criticality Noted Date Comments Nitrofurantoin Macrocrystal Rash Low 05/27/20 24 Pollen Extracts Rash Low 04/24/2024 Sulfa (Sulfonamide Antibiotics) Rash Low 07/02/2007 Medications atorvastatin (Lipitor) 40 mg tablet Take 40 mg by mouth at bedtime. Active mirtazapine (Remeron) 15 mg tablet Take 1 tablet by mouth at bedtime. Active aspirin 81 mg capsule Take 81 mg by mouth at bedtime. Active MULTIVITAMIN ORAL Take 1 tablet by mouth daily. Active nitroglycerin (Nitrostat) 0.[address] 0.4 mg under the tongue as needed for chest pain. Active acetaminophen (TylenoL) 500 mg tablet Take 2 tablets (1,000 mg total) by mouth every 6 (six) hours as needed for pain. 09/25/2024 Active sennosides-docu sate sodium (Senokot-S) 8.6-50 mg per tablet Take 2 tablets by mouth at bedtime as needed for constipation . 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 Leidy Escalona, C.N.P., R.N. Obstruction Intestinal (HCC); Resection Small Bowel Status Post 10/08/2024 2:30 PM CDT Procedure visit Department of Urology in [place], [place] [address] [place] [phone] Tiffany Toure M.D., M.Hannah Knox, R.N. Injury Bladder Initial; Neobladder Status Post 10/08/2024 1:00 PM CDT Procedure visit Department of Urology in [place], [place] [address] [place] [phone] Tiffany Toure M.D., M.Jatin. Hannah Tafoya R.N. Injury Bladder Initial (Primary Dx); Obstruction Intestinal (HCC); Neobladder Status Post 10/08/2024 10:30 AM CDT Office Visit Department of Urology in [place], [place] [address] [place] [phone] Eusebia Dhaliwal M.D. Injury Bladder Initial (Primary Dx); Neobladder Status Post; Obstruction Intestinal (HCC) 10/08/2024 9:00 AM CDT - 10/08/2024 11:59 PM CDT Hospital Encounter Department of Radiology, [facility], in [place], [place] [address] [place] [phone] William Briggs M.D. Resection Small Bowel Status Post Discharge Disposition: Home or Self Care 10/08/2024 7:13 AM CDT - 10/08/2024 8:59 AM CDT Hospital Encounter Department of Radiology, [facility], in [place], [place] [address] [place] [phone] Zeinab Frederick M.D. Personal History Of Malignant Neoplasm Of Bladder Discharge Disposition: Home or Self Care 09/24/2024 Clinical Communication [facility] [address] [place] [phone] Hetal Parker, JUANCHO, C.N.P., M.S.N. Post-op Follow-up 09/21/2024 7:55 PM CDT Ancillary Procedure Department of Trauma and Surgery 09/17/2024 Orders Only Department of Urology in [address] [phone] Zeinab Frederick M.D. Personal History Of Malignant Neoplasm Of Bladder (Primary Dx) 09/17/2024 Clinical Communication [facility] [address] [place] [phone] Georgina Vicente 09/16/2024 8:39 AM CDT Anesthesia Event [facility] OR [address] [place] [phone] Ashely Hines M.D. 09/16/2024 7:45 AM CDT - 09/16/2024 12:15 PM CDT Surgery [facility] OR [address] [place] [phone] William Briggs M.D. ROBOTIC-ASSISTED ABDOMINAL EXPLORATION, CONVERSION TO OPEN LAPAROTOMY, LYSIS OF ADHESIONS >90 MINUTES; REPAIR OF CYSTOTOMY; SMALL BOWEL RESECTION 09/16/2024 6:35 AM CDT Ancillary Procedure Department of General Surgery 09/16/2024 6:15 AM CDT - 09/25/2024 10:54 AM CDT Hospital Encounter [facility], Fourth Floor [address] [place] [phone] William Briggs M.D. Resection Small Bowel Status Post (Primary Dx); Obstruction Intestinal (HCC) Discharge Disposition: Home or Self Care from Last 3 Months Immunizations Immunization Administration Dates Next Due DTaP (Infanrix, Tripedia) 01/09/2007 H1N1 All Forms 07/15/2009 HZV (ZOSTAVAX) 02/13/2008 Influenza TIV (IM) 07/04/2017 Influenza high dose QV(65 ye ars or older) (PF) 04/15/2020 Influenza, Quadrivalent, Adj uvanted, Preservative Free 05/11/2023,06/03/2022,07/23/2021 Influenza, Seasonal, Injectable 06/06/20 13,05/14/2012,04/23/2010,2007,04/26/2006 PCV13 09/22/2015 PPSV23 06/06/2013 RZV (SHINGRIX) 06/27/2019,04/23/2019 Td, (Adult) Unspecified 04/28/1997 Tdap 01/22/2018,01/09/2007 influenza trivalent high dos e (HD)(PF) 04/23/2019,04/25/2018,03/28/2016,2013 influenza trivalent vaccine (6 months and older)(PF) 05/09/2011 influenza vaccine quad (FLUZONE/FLUARIX) (6 months and older)(PF) 04/22/2015 Family History Medical History Relation Name Comments Anxiety disorder Mother Kimmy Blanco Depression Mother Kimmy Blanco Hypertension Mother Kimmy Blanco Dementia Sister Kizzy Cruz Relation Name Status Comments Mother Kimmy Blanco Alive Sister Kizzy Cruz Alive Social History Tobacco Use Types Packs/Day Years Used Date Smoking Tobacco: Former Cigarettes 0 06/26/1966 - 04/24/1980 Smokeless Tobacco: Never Tobacco Cessation:Counseling Given: Not Answered Alcohol Use Standard Drinks/Week Comments Yes 12 (1 standard drink = 0.6 oz pu re alcohol) [facility] Utilities Answer Date Recorded In the past 12 months has e electric, gas, oil, or water company threatened to shut off services in your [...] your living situation today? I have a mamta place to live 09/17/2024 Sex and Gender Information Value Date Recorded Sex Assigned at Male 04/20/2024 9:38 AM CDT Legal Sex Male 9:54 AM [employer]SE INSPECT[employer] Gender Identity Male 04/20/2024 9:38 AM CDT Sexual Orientation Straight 04/20/2024 9: 38 AM CDT Last Filed Vital Signs Vital Sign Reading Time Taken Comments Blood Pressure 124/76 09/25/2024 7:27 AM CDT Pulse 65 09/25/2024 7:27 AM CDT Temperature 36 C (96.8 F) 09/25/2024 7:27 AM CDT Respiratory Rate 19 09/25/2024 7:27 AM CDT Oxygen Saturation 93% 09/25/2024 7:27 AM CDT Inhaled Oxygen Concentration - - Weight 93 kg (205 lb 0.4 oz) 09/22/2024 5:46 AM CDT Height 180.3 cm (5' 11) 09/16/2024 7:14 AM CDT Body Mass Index 28.6 09/16/2024 7:14 AM CDT Plan of Treatment Health Maintenance Due Date Last Done Comments Hepatitis C Screening 1945 RSV vaccine - (32-36 weeks) or 60+ years (1 - 1-dose 75+ series) 2022 COVID-19 Vaccine ( season) 2024 05/11/2023, 06/03/2022, 04/28/2021, Additional history exists Influenza Vaccine (#1) 2024 , 06/03/2022, 07/23/2021, Additional history exists Depression Screening (Annual PHQ-2) 06/26/2024 Office Visit for Blood Pressure Check / Re-check 05/27/2025 05/27/2024 DTaP,Tdap,and Td Vaccines (4 - Td or Tdap) 01/23/2028 01/22/2018, 01/09/2007, 01/09/2007, Additional history exists Pneumococcal vaccine (50+ years) Completed 09/22/2015, 06/06/2013 Zoster Vaccines Completed 06/27/2019, 03/27, 02/13/2008 Cologuard Discontinued 11/14/2022 Colorectal Cancer Screening Discontinued Fall Risk Screen (Annual) Completed 09/16/2024 CT Colonography Discontinued Colonoscopy Discontinued FIT Discontinued IPV Vaccines Aged Out No longer eligi ble based on patient's age to complete this topic Medical Devices Implanted Type Area Manager Market Development Device Identifier Shelf Expiration Date Model / Serial / Lot Cardiac Stent Cardiac Stent Heart Description:RIGHT SIDE Knee Implant Knee Implant Knee Description:2012-LEFT KNEE Adhesive Applicator Barrier [id number] Abs - [id number] Implanted:Qty: 1 on 09/16/2024 by William Briggs M.D. at [facility] Mesh or Patch López 10/06/2026 [id number] / / [id number] Procedures Procedure Name Priority Date/Time Associated Diagnosis Comments DX ABDOMEN SUPINE AND UPRIGHT 2 VIEWS RAD - Routine (most inpatients and all outpatients) 10/08/2024 9:42 AM CDT Resection Small Bowel Status Post CT CYSTOGRAM WITHOUT IV CONTRAST RAD - Routine (most inpatients and all outpatients) 10/08/2024 9:21 AM CDT Personal History Of Malignant Neoplasm Of Bladder ADULT OXYGEN THERAPY Routine 09/24/2024 8:01 AM CDT DX ABDOMEN PORTABLE ANTERIOR POSTERIOR 1 VIEW RAD - Timed (for specific dates/times) 09/24/2024 5:55 AM CDT CBC WITHOUT DIFFERENTIAL, B Routine 09/23/2024 8:19 PM CDT ADULT OXYGEN THERAPY Routine 09/23/2024 8:00 PM CDT CREATININE, BODY FLUID Routine 09/23/2024 1:30 PM CDT CYSTATIN C WITH EGFR Routine 09/23/2024 1:22 PM CDT BASIC METABOLIC PANEL, S/P Routine 09/23/2024 1:22 PM CDT ADULT OXYGEN THERAPY Routine 09/23/2024 8:01 AM CDT PULSE OXIMETRY WITH REMOTE OVERVIEW Routine 09/23/2024 8:01 AM CDT DX ABDOMEN PORTABLE ANTERIOR POSTERIOR 1 VIEW RAD - Timed (for specific dates/times) 09/23/2024 5:49 AM CDT ECG Routine 09/23/2024 5:36 AM CDT ADULT OXYGEN THERAPY Routine 09/22/2024 8:00 PM CDT PULSE OXIMETRY WITH REMOTE OVERVIEW Routine 09/22/2024 8:00 PM CDT BASIC METABOLIC PANEL, S/P Timed 09/22/2024 1:32 PM CDT ADULT OXYGEN THERAPY Routine 09/22/2024 8:00 AM CDT PULSE OXIMETRY WITH REMOTE OVERVIEW Routine 09/22/2024 8:00 AM CDT DX ABDOMEN PORTABLE ANTERIOR POSTERIOR 1 VIEW RAD - Timed (for specific dates/times) 09/22/2024 6:38 AM CDT ADULT OXYGEN THERAPY Routine 09/21/2024 8:00 PM CDT PULSE OXIMETRY WITH REMOTE OVERVIEW Routine 09/21/2024 8:00 PM CDT TRAUMA CC AND SURGERY IMAGE EXAM Routine 09/21/2024 7:55 PM CDT ADULT OXYGEN THERAPY Routine 09/21/2024 8:00 AM CDT PULSE OXIMETRY WITH REMOTE OVERVIEW Routine 09/21/2024 8:00 AM CDT PHOSPHORUS (INORGANIC), S Timed 09/21/2024 6:47 AM CDT MAGNESIUM, S Timed 09/21/2024 6:47 AM CDT BASIC METABOLIC PANEL, S/P Timed 09/21/2024 6:47 AM CDT DX ABDOMEN PORTABLE ANTERIOR POSTERIOR 1 VIEW RAD - Timed (for specific dates/times) 09/21/2024 6:46 AM CDT ADULT OXYGEN THERAPY Routine 09/20/2024 8:01 PM CDT PULSE OXIMETRY WITH REMOTE OVERVIEW Routine 09/20/2024 8:[address] ABDOMEN PELVIS WITH IV CONTRAST RAD - Routine (most inpatients and all outpatients) 09/20/2024 12:05 PM CDT ADULT OXYGEN THERAPY Routine 09/20/2024 8:57 AM CDT ADULT OXYGEN THERAPY Routine 09/20/2024 8:57 AM CDT ADULT OXYGEN THERAPY Routine 09/20/2024 8:57 AM CDT PULSE OXIMETRY WITH REMOTE OVERVIEW Routine 09/20/2024 8:01 AM CDT CBC WITHOUT DIFFERENTIAL, B Routine 09/20/2024 3:59 AM CDT COMPREHENSIVE METABOLIC PANEL, S/P Routine 09/20/2024 3:59 AM CDT DX ABDOMEN 1 VIEW RAD - Routine (most inpatients and all outpatients) 09/19/2024 10:54 PM CDT PULSE OXIMETRY WITH REMOTE OVERVIEW Routine 09/19/2024 8:01 PM CDT CREATININE, BODY FLUID Routine 09/19/2024 12:19 PM CDT PULSE OXIMETRY WITH REMOTE OVERVIEW Routine 09/19/2024 8:01 AM CDT ADULT OXYGEN THERAPY Routine 09/19/2024 8:01 AM CDT ECG Routine 09/19/2024 7:03 AM CDT DX ABDOMEN PORTABLE ANTERIOR POSTERIOR 1 VIEW RAD - Routine (most inpatients and all outpatients) 09/19/2024 5:59 AM CDT PULSE OXIMETRY WITH REMOTE OVERVIEW Routine 09/18/2024 8:01 PM CDT ADULT OXYGEN THERAPY Routine 09/18/2024 8:01 PM CDT BASIC METABOLIC PANEL, S/P Routine 09/18/2024 7:59 PM CDT CBC WITHOUT DIFFERENTIAL, B Routine 09/18/2024 7:59 PM CDT PULSE OXIMETRY WITH REMOTE OVERVIEW Routine 09/18/2024 9:10 AM CDT PULSE OXIMETRY WITH REMOTE OVERVIEW Routine 09/18/2024 9:10 AM CDT PULSE OXIMETRY WITH REMOTE OVERVIEW Routine 09/18/2024 9:10 AM CDT ADULT OXYGEN THERAPY Routine 09/18/2024 8:01 AM CDT DX ABDOMEN PORTABLE ANTERIOR POSTERIOR 1 VIEW RAD - Routine (most inpatients and all outpatients) 09/18/2024 4:01 AM CDT PHOSPHORUS (INORGANIC), S Timed 09/18/2024 2:52 AM CDT MAGNESIUM, S Timed 09/18/2024 2:52 AM CDT BASIC METABOLIC PANEL, S/P Timed 09/18/2024 2:52 AM CDT DX ABDOMEN PORTABLE ANTERIOR POSTERIOR 1 VIEW RAD - Emergent (Fastest; for the most critically ill patients) 09/18/2024 2:44 AM CDT CBC WITHOUT DIFFERENTIAL, B STAT 09/18/2024 2:32 AM CDT CBC WITHOUT DIFFERENTIAL, B Routine 09/17/2024 8:37 PM CDT ADULT OXYGEN THERAPY Routine 09/17/2024 8:01 PM CDT ADULT OXYGEN THERAPY Routine 09/17/2024 8:01 AM CDT DX CHEST PORTABLE 1 VIEW RAD - Routine (most inpatients and all outpatients) 09/17/2024 6:44 AM CDT DX ABDOMEN PORTABLE ANTERIOR POSTERIOR 1 VIEW RAD - Routine (most inpatients and all outpatients) 09/17/2024 6:42 AM CDT CBC WITHOUT DIFFERENTIAL, B Routine 09/16/2024 8:22 PM CDT BASIC METABOLIC PANEL, S/P Routine 09/16/2024 8:22 PM CDT MAGNESIUM, S Routine 09/16/2024 8:22 PM CDT PHOSPHORUS (INORGANIC), S Routine 09/16/2024 8:22 PM CDT ADULT OXYGEN THERAPY Routine 09/16/2024 8:01 PM CDT ADULT OXYGEN THERAPY Routine 09/16/2024 2:34 PM CDT ADULT OXYGEN THERAPY Routine 09/16/2024 2:34 PM CDT SURGICAL PATHOLOGY, [facility] Routine 09/16/2024 11:18 AM CDT Obstruction Intestinal (HCC) LDA ANE ENDOTRACHEAL AIRWAY Routine 09/16/2024 8:51 AM CDT LDA ANE ARTERIAL LINE INSERTION Routine 09/16/2024 8:45 AM CDT OH ARTL CATH/CNULA MONITOR PERC Routine 09/16/2024 8:45 AM CDT CBC WITHOUT DIFFERENTIAL, B STAT 09/16/2024 8:13 AM CDT BASIC METABOLIC PANEL, S/P STAT 09/16/2024 8:13 AM CDT TYPE AND SCREEN STAT 09/16/2024 8:13 AM CDT ROBOTIC-ASSISTED ABDOMINAL EXPLORATION 09/16/2024 8:08 AM CDT Obstruction Intestinal (HCC) SURGERY IMAGE EXAM Routine 09/16/2024 6: 35 AM CDT from Last 3 Months Results * DX Abdomen Supine and Upright 2 Views (10/08/2024 9:42 AM CDT) Anatomical Region Laterality Modality Abdomen, Abdominal RST LOS, Abdominal ARZ LOS, Abdominal FLA LOS Right Digital Radiography Impressions 10/08/2024 10:36 AM CDT Mild gaseous and stool distended loops of bowel in a nonobstructive pattern. No evidence of free air under the diaphragm on standing views. Surgical clips in the pelvis. Cutaneous tonia. Urinary catheter in the bladder. Narrative 10/08/2024 10:36 AM CDT EXAM: DX ABDOMEN SUPINE AND UPRIGHT 2 VIEWS Procedure Note Krista Quiles M.D. - 10/08/2024 EXAM: DX ABDOMEN SUPINE AND UPRIGHT 2 VIEWS IMPRESSION: Mild gaseous and stool distended loops of bowel in a nonobstructivepattern. No evidence of free air under the diaphragm on standing views.Surgical clips in the pelvis. Cutaneous tonia. Urinary catheter in thebladder. us William Briggs M.D. [facility]AGING PROC EDURES Final Result * CT Cystogram without IV Contrast (10/08/2024 [...] Zeinab TAPIA CT PROCEDURES Joana l Result * DX Abdomen Portable Anterior Posterior 1 View (09/24/2024 5:55 AM CDT) Only the most recent of8 resultswithin the time period is included. Anatomical Region Laterality Modality Abdomen, Abdominal RST LOS, Abdominal ARZ LOS, Abdominal FLA LOS N/A Digital Radiography Impressions 09/24/2024 6:29 AM CDT Apparent mild stool throughout nondilated colon. Overall paucity of small bowel gas. No gross bowel obstruction. Drain. Surgical clips. Narrative 09/24/2024 6:29 AM CDT EXAM: DX ABDOMEN PORTABLE ANTERIOR POSTERIOR 1 VIEW Procedure Note Fab Hagen D.O. - 09/24/2024 EXAM: DX ABDOMEN PORTABLE ANTERIOR POSTERIOR 1 VIEW IMPRESSION: Apparent mild stool throughout nondilated colon. Overall paucity of smallbowel gas. No gross bowel obstruction. Drain. Surgical clips. Trisha Burris APRN C.N.P. IMG DIAGNOSTIC IMAG ING PROCEDURES Final Result * (ABNORMAL) CBC without Differential (09/23/2024 8:19 PM CDT) Only the most recent of7 resultswithin the time period is included. Hemoglobin 12.8(L) 13.2 - 16.6 g/dL 09/23/2024 9:08 PM CDT DTL Hematocrit 39.8 38.3 - 48.6 % 09/23/2024 9:08 PM CDT DTL Erythrocytes 4.19(L) 4.35 - 5.65 x10(12)/L 09/23/2024 9:08 PM CDT DTL MCV 95.0 78.2 - 97.9 fL 09/23/2024 9:08 PM CDT DTL RBC Distrib Width 12.8 11.8 - 14.5 % 09/23/2024 9:08 PM CDT DTL Platelet Count 225 135 - 317 x10(9)/L 09/23/2024 9:08 PM CDT DTL Leukocytes 7.3 3.4 - 9.6 x10(9)/L 09/23/2024 9:08 PM CDT DTL Blood (Blood, Venous) 09/23/2024 8:19 PM CDT 09/23/2024 9:01 PM CDT Fuentes Hanna APRNN.P., Brenda.N.P. LAB BLOOD ADD -ON Final Result Performing Organization Address [facility]/ZIP Co de Phone Number [facility] [address] [place], [place] [id number] [place] [address] * Creatinine, Body Fluid (09/23/2024 1:30 PM CDT) Only the most recent of2 resultswithin the time period is included. Creatinine, BF 0.9 See Comment mg/dL 09/23/2024 2:46 PM CDT DTL Comment: ----ADDITIONAL INFORMATION---- Peritoneal, Pleural, and Drain fluid concentrations should be compared to serum or plasma. Fluid to serum ratios >1.0 suggest the specimen may be contaminated with urine. Peritoneal dialysate fluid to serum creatinine ratios can be calculated from timed collections to determine peritoneal membrane transport rates. All other fluids refer to [email or web address] for further interpretive information. This test has been modified from the carton making machinist's instructions. Its performance characteristics were determined by [facility] in a manner consistent with CLIA requirements. This test has not been cleared or approved by the U.S. Food and Drug Administration. Fluid Type, Creatinine Fluid, Abdomen 09/23/2024 1:45 PM CDT DTL Fluid (Abdomen) 09/23/2024 1 :30 PM CDT 09/23/2024 1:55 PM CDT Kathy Moura LAB BODY FLUIDS AND STOO LS ORDERABLES Final Result Performing Organization Address City/[facility]/ZIP Co de Phone Number [facility] [address] [place] [address], [facility] [address] [place] [address] * Cystatin C with Estimated GFR (09/23/2024 1:22 PM CDT) eGFR by Cystatin C 89 >60 mL/min/BSA 09/23/2024 2:18 PM CDT DTL Comment: Estimated GFR calculated using the CKD-EPI Cystatin C (2012) equation. ----ADDITIONAL INFORMATION---- Cystatin C-based eGFR may differ substantially from creatinine- based eGFR in patients with abnormal muscle mass or acutely changing renal function. Please interpret together with relevant clinical features. On 11/19/2020 the cystatin C assay method changed. Cystatin C eGFR results > 50 ml/min/1.73m2 are approximately 10% lower with the new assay. Cystatin C 0.86 0.67 - 1.21 mg/L 09/23/2024 2:18 PM CDT DTL Blood (Blood, Venous) 09/23/2024 1:22 PM CDT 09/23/2024 1:58 PM CDT Kathy Moura LAB BLOOD ADD-ON Final R esult [facility] [address] [place] [address], [facility] [address] [place] [address] * (ABNORMAL) Basic Metabolic Panel (09/23/2024 1:22 PM CDT) Only the most recent of7 resultswithin the time period is included. Pathologist [facility] Potassium, S 3.7 3.6 - 5.2 mmol/L 09/23/2024 2:18 PM CDT DTL Sodium, S 145 135 - 145 mmol/L 09/23/2024 2:18 PM CDT DTL Chloride, S 103 98 - 107 mmol/L 09/23/2024 2:18 PM CDT DTL Bicarbonate, S 25 22 - 29 mmol/L 09/23/2024 2:18 PM CDT DTL Anion Gap 17(H) 7 - 15 09/23/2024 2:18 PM CDT DTL BUN (Blood Urea Nitrogen), S 19 8 - 24 mg/dL 09/23/2024 2:18 PM CDT DTL Creatinine 0.96 0.74 - 1.35 mg/dL 09/23/2024 2:18 PM CDT DTL Estimated GFR (eGFR) 81 >=60 mL/min/BSA 09/23/2024 2:18 PM CDT DTL Comment: Estimated GFR calculated using the 2020 CKD_EPI creatinine equation. Calcium, Total, S 8.3(L) 8.8 - 10.2 mg/dL 09/23/2024 2:18 PM CDT DTL Glucose, S 90 70 - 140 mg/dL 09/23/2024 2:18 PM CDT DTL Blood (Blood, Venous) 09/23/2024 1:22 PM CDT 09/23/2024 1:58 PM CDT us Kathy Moura LAB BLOOD ADD-ON Final R esult Performing Organization Address City/[facility]/ZIP Co de Phone Number [facility] [address] [place] [address], [facility] [address] [place] [address] * Abdomen-Trauma CC And Surgery Image Exam (09/21/2024 7:55 PM CDT) 09/21/2024 7:55 PM CDT Narrative IIMS - 09/21/2024 7:57 PM CDT This order has been created and auto-finalized to support the import of images acquired without order. The clinical documentation to support these images can be found on the encounter that produced images. us Provider Not In System IMG NON RAD IMAGING PROCE DURES Final Result Performing Organization Address City/[facility]/ZIP Co de Phone Number [facility] * Phosphorus Inorganic (09/21/2024 6:47 AM CDT) Only the most recent of3 resultswithin the time period is included. Phosphorus (Inorganic), S 2.8 2.5 - 4.5 mg/dL 09/21/2024 7:44 AM CDT DTL Blood (Blood, Venous) 09/21/2024 6:47 AM CDT 09/21/2024 7:26 AM CDT us Malu Stone APRN.N.P., D.N.P. LAB BLOOD AD D-ON Final Result Performing Organization Address City/[facility] Co de Phone Number [facility] [address] [place] [address] * Magnesium (09/21/2024 6:47 AM CDT) Only the most recent of3 resultswithin the time period is included. Magnesium, S 2.2 1.7 - 2.3 mg/dL 09/21/2024 7:44 AM CDT DTL Blood (Blood, Venous) 09/21/2024 6:47 AM CDT 09/21/2024 7:26 AM CDT Malu tSone APRN.N.P., D.N.P. LAB BLOOD AD D-ON Final Result Performing Organization Address City/[facility] Co de Phone Number [facility] [address] [place] [address] * CT Abdomen Pelvis with IV Contrast (09/20/2024 12:05 PM CDT) Anatomical Region Laterality Modality Abdomen, Pelvis, Abdominal R ST LOS, Abdominal ARZ LOS, Abdominal FLA LOS N/A Computed Tomograp hy, Computed Tomography 09/20/2024 11:5 9 AM CDT Impressions 09/20/2024 12:19 PM CDT 1. Expected postsurgical changes of two site small bowel enterotomy with small bowel resection. No evidence of anastomotic leak. 2. Postoperative ileus. 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 Matos catheter with tip in the ileal neobladder. Symmetric nephrograms. No hydronephrosis. Multiple small bowel anastomoses in the anterior abdomen, which are widely patent. Several loops of mildly dilated proximal small bowel in the left upper quadrant with gradual tapering to normal caliber bowel likely represent postoperative ileus. Enteric contrast is seen throughout the proximal and mid small bowel. No extraluminal contrast or significant free fluid or gas to suggest anastomotic leak. Expected small volume postsurgical pneumoperitoneum and scattered mesenteric free fluid/edema. Right-sided surgical drain terminating in the left lower quadrant abdomen. Enteric tube tip in the distal stomach. Colonic diverticulosis. Postsurgical subcutaneous emphysema extending along the left abdominal wall into the left inguinal region. No focal suspicious hepatic lesion. Cholelithiasis. Normal pancreas, spleen, and adrenal glands. Aortoiliac calcifications. No abdominopelvic lymphadenopathy. Trace right pleural effusion and bibasilar compressive atelectasis. Degenerative changes of the lumbar spine and bilateral hips. No aggressive osseous lesions. Procedure Note Buffy Guardado M.D. - 09/20/2024 EXAM: CT ABDOMEN PELVIS WITH IV CONTRAST COMPARISON: CT enterography 05/27/2024 FINDINGS: Postsurgical changes of cystoprostatectomy with ilealneobladder. Amtos catheter with tip in the ileal neobladder. Symmetricnephrograms. No hydronephrosis. Multiple small bowel anastomoses in the anterior abdomen, which are widelypatent. Several loops of mildly dilated proximal small bowel in the leftupper quadrant with gradual tapering to normal caliber bowel likelyrepresent postoperative ileus. Enteric contrast is seen throughout the proximal and mid small bowel. Noextraluminal contrast or significant free fluid or gas to suggestanastomotic leak. Expected small volume postsurgical pneumoperitoneum andscattered mesenteric free fluid/edema. Right-sided surgical drain terminating in the left lower quadrant abdomen.Enteric tube tip in the distal stomach. Colonic diverticulosis. Postsurgical subcutaneous emphysema extending along the left abdominalwall into the left inguinal region. No focal suspicious hepatic lesion. Cholelithiasis. Normal pancreas,spleen, and adrenal glands. Aortoiliac calcifications. No abdominopelviclymphadenopathy. Trace right pleural effusion and bibasilar compressiveatelectasis. Degenerative changes of the lumbar spine and bilateral hips. No aggressive osseous lesions. IMPRESSION: 1. Expected postsurgical changes of two site small bowel enterotomy withsmall bowel resection. No evidence of anastomotic leak. 2. Postoperative ileus. us Fuentes Marques APRNNRobbieP. IMG CT PROCEDURES F inal Result * (ABNORMAL) Comprehensive Metabolic Panel (09/20/2024 3:59 AM CDT) Potassium, S 4.1 3.6 - 5.2 mmol/L 09/20/2024 5:05 AM CDT DTL Sodium, S 142 135 - 145 mmol/L 09/20/2024 5:05 AM CDT DTL Chloride, S 106 98 - 107 mmol/L 09/20/2024 5:05 AM CDT DTL Bicarbonate, S 24 22 - 29 mmol/L 09/20/2024 5:05 AM CDT DTL Anion Gap 12 7 - 15 09/20/2024 5:05 AM CDT DTL BUN (Blood Urea Nitrogen), S 15 8 - 24 mg/dL 09/20/2024 5:05 AM CDT DTL Creatinine 0.96 0.74 - 1.35 mg/dL 09/20/2024 5:05 AM CDT DTL Estimated GFR (eGFR) 81 >=60 mL/min/BS A 09/20/2024 5:05 AM CDT DTL Comment: Estimated GFR calculated using the 2020 CKD_EPI creatinine equation. Calcium, Total, S 7.8(L) 8.8 - 10.2 mg/dL 09/20/2024 5:05 AM CDT DTL Glucose, S 100 70 - 140 mg/dL 09/20/2024 5:05 AM CDT DTL Protein, Total, S 4.9(L) 6.3 - 7.9 g/dL 09/20/2024 5:05 AM CDT DTL Albumin, S 3.0(L) 3.5 - 5.0 g/dL 09/20/2024 5:05 AM CDT DTL Aspartate Aminotransferase (AST), S 19 8 - 48 U/L 09/20/2024 5:05 AM CDT DTL Alkaline Phosphatase, S 71 40 - 129 U/L 09/20/2024 5:05 AM CDT DTL Alanine Aminotransferase (ALT), S 8 7 - 55 U/L 09/20/2024 5:17 AM CDT DTL Bilirubin, Total, S 0.5 0.0 - 1.2 mg/dL 09/20/2024 5:05 AM CDT DTL Blood (Blood, Venous) 09/20/2024 3:59 AM CDT 09/20/2024 4:47 AM CDT us Patrick Vallejo APRN, C.N.P., D.N.P. LAB BLOOD A DD-ON Final Result [facility] [address] [place] [address], [facility] DTL [facility] [address] [place] [address] * DX Abdomen 1 View (09/19/2024 10:54 PM CDT) Anatomical Region Laterality Modality Abdomen, Abdominal RST LOS, Abdominal ARZ LOS, Abdominal FLA LOS N/A Digital Radiography Impressions 09/20/2024 8:37 AM CDT Compared to earlier same day radiograph at 05:58 AM, stable position of enteric tube with sidehole projecting over the distal stomach. The tip is near the pylorus, potentially post-pyloric. No kinking of the tubing. Again seen are several loops of dilated small bowel predominantly now in the left upper quadrant with multiple new air-fluid levels suggestive of stasis. Normal caliber of the gas-filled visualized colon. Cholelithiasis. Surgical drain projects over the midline pelvis. Urinary catheter. Narrative 09/20/2024 8:37 AM CDT EXAM: DX ABDOMEN 1 VIEW Procedure Note Shahram Martines M.D. - 09/20/2024 EXAM: DX ABDOMEN 1 VIEW IMPRESSION: Compared to earlier same day radiograph at 05:58 AM, stable position ofenteric tube with sidehole projecting over the distal stomach. The tip isnear the pylorus, potentially post-pyloric. No kinking of the tubing. Again seen are several loops of dilated small bowel predominantly now inthe left upper quadrant with multiple new air-fluid levels suggestive ofstasis. Normal caliber of the gas-filled visualized colon. Cholelithiasis.Surgical drain projects over the midline pelvis. Urinary catheter. Patrick Vallejo APRN, C.N.P., D.N.P. IMG DIAGNOS TIC IMAGING PROCEDURES Final Result * ECG 12 Lead (09/19/2024 7:03 AM CDT) Ventricular Rate ECG/Min 73 BPM MUSE QRSD Interval 98 ms MUSE QT Interval 378 ms MUSE QTC Interval 416 ms MUSE R [place] -23 degrees MUSE T Wave [place] 15 degrees MUSE 09/19/2024 7:03 AM CDT 09/19/2024 7:30 AM CDT Impressions MUSE - 09/19/2024 7:30 AM CDT Sinus rhythm with sinus arrhythmia and variable OH intervals One ectopic atrial beat Premature junctional complexes with junctional escape complexes Minimal voltage criteria for LVH, may be normal variant Nonspecific ST abnormality When compared with ECG of 12-Jul-1994 10:27, Significant changes have occurred Revised Report Narrative Procedure Note Kleber Guillen Jr., M.D. - 09/19/2024 IMPRESSION: Sinus rhythm with sinus arrhythmia and variable OH intervals One ectopic atrial beat Premature junctional complexes with junctional escape complexes Minimal voltage criteria for LVH, may be normal variant Nonspecific ST abnormality When compared with ECG of 12-Jul-1994 10:27, Significant changes have occurred Revised Report Patrick Vallejo APRN, C.N.P., D.N.P. ECG ORDERAB LES Final Result MUSE NA * DX Chest Portable 1 View (09/17/2024 6:44 AM CDT) Anatomical Region Laterality Modality Chest, Thoracic RST LOS, Tho racic ARZ LOS, Thoracic FLA LOS N/A Digital Radiography Impressions 09/17/2024 9:11 AM CDT No comparison. Right lung base airspace opacity which may be infectious/inflammatory. Superimposed coarse interstitial opacities in the lung bases. No pneumothorax or significant pleural effusion. Borderline enlarged cardiac silhouette. Aortic calcification. Narrative 09/17/2024 9:11 AM CDT EXAM: DX CHEST PORTABLE 1 VIEW Procedure Note Gume Knapp M.D. - 09/17/2024 EXAM: DX CHEST PORTABLE 1 VIEW IMPRESSION: No comparison. Right lung base airspace opacity which may beinfectious/inflammatory. Superimposed coarse interstitial opacities in thelung bases. No pneumothorax or significant pleural effusion. Borderlineenlarged cardiac silhouette. Aortic calcification. us Crissy Aden APRN, C.N.P., D.N.P. IMG DIAGNOST IC IMAGING PROCEDURES Final Result * Surgical Pathology, Frozen Lab (09/16/2024 11:18 AM CDT) 09/17/2024 1:58 PM CDT STMA Report electronically signed by Jethro Kraus M.D., Ph.D. I verify that I have examined all relevant slides/materi als for the specimen(s) and rendered or confirmed the diagnosis. 09/17/2024 1:58 PM CDT STMA Gross Description A. Received fresh labeled small bowel is a 50 cm in length segment of small bowel showing scattered serosal adhesions. The specimen is pink-ni with grossly unremarkable mucosa. Representativ e tissue submitted for permanent sections. Grossed by Kaveh Suarez.H.S, PA(ASCP). 09/17/2024 1:58 PM CDT STMA Block Summary A Small bowel A1 Serosal adhesions 1 A2 Serosal adhesions 2 A3 Small bowel 09/17/2024 1:58 PM CDT STMA Interpretation FINAL DIAGNOSIS A. Small bowel, resection: Benign portion of small bowel with areas of subserosal/se conor dense fibrosis with adhesions. Digital imaging was used in the diagnostic assessment of this case. 09/17/2024 1:58 PM CDT STMA Tissue (Small Bowel) 09/16/2024 11:18 AM CDT William Briggs M.D. LAB SURG PATH ORDERABLES Fi nal Result [facility] [address] [place] [address], [facility] 200 [facility] [address] [place] [address] * LDA ANE ENDOTRACHEAL AIRWAY (09/16/2024 8:51 AM CDT) Narrative Awilda Ren M.S.N., R.N. - 09/16/2024 8:51 AM CDT Awilda Ren M.S.N., R.NRobbie 09/16/2024 9:12 AM Airway Date/Time: 09/16/2024 8:51 AM Performed by: Awilda Ren M.S.N., R.N. Authorized by: Ashely Hines M.D. Patient location during procedure: OR / Procedure Area PROCEDURE DETAILS: Mask difficulty assessment: easy mask Final airway type: video laryngoscope Laryngeal Manipulation: no Final best view of glottic structures - Cormack/Lehane Score: grade 1 ETT location: oral VL device: glide scope [place] scope blade size: 4 Tube size: 7.5 ETT distance at teeth/gum: 22 Oral tube type: standard ETT Cuffed: yes Number of attempt to successful placement: 1 Airway confirmation: bilateral breath sounds, positive ETCO2 and bilateral chest rise Other previous techniques attempted: none PRE PROCEDURE DETAILS: Pre evaluation for airway management: procedure Urgency: elective Preop assessment of probable difficulty: no difficulty anticipated Preoxygenation: bag valve mask SEDATION / ANESTHESIA Anesthesia method: anesthesia POST PROCEDURE DETAILS: Procedure outcome: successful Notable Events: no complications Ashely Hines M.D. ANESTHESIA ORDERABLES Final Result * OH ARTL CATH/CNULA MONITOR PERC, LDA ANE ARTERIAL LINE INSERTION (09/16/2024 8:45 AM CDT) Narrative Awilda Ren M.S.N., R.N. - 09/16/2024 8:45 AM CDT Awilda Ren M.S.N., R.N. 09/16/2024 9:07 AM Invasive Catheter Date/Time: 09/16/2024 8:45 AM Performed by: Awilda Ren M.S.N., R.N. Authorized by: Ashely Hines M.D. Care team members present 1. Ashely Hines M.D. 2. Claudine Floyd APRN, LEAF STAMPER, DNAP 3. Awilda Ren M.S.N., R.NRobbie Location: OR PROCEDURE DETAILS: Line type: arterial Laterality: right Location: radial Location details: new site Age group: adult Catheter diameter: 18 Ga Technique: ultrasound guided Ultrasound guidance: image not saved Monitored: yes Number of attempts: 1 UNIVERSAL PROTOCOL All relevant documentation and testing were reviewed and available. All required blood products, implants, devices and or special equipment were made available as applicable. Pre-procedure verification was conducted and the correct site was marked if required. A fire risk and smoke assessment were done as applicable. The procedural time-out to verify correct patient, correct side/site, and procedure was conducted prior to performing the procedure and confirmed in a procedural pause. PRE-PROCEDURE DETAILS: Appropriate hand hygiene, gown, cap, mask, protective eyewear, sterile gloves, skin preparation, sterile drape, and strict aseptic technique were utilized as applicable for the procedure.: yes Skin preparation: chlorhexidine POST-PROCEDURE DETAILS: Procedure completed successfully: yes Line secured: secured with sutureless device Chlorhexidine disc around insertion site and under catheter with slight turn: yes Notable Events - arterial: none Ashely Hines M.D. PROCEDURE/MINOR SURGICAL OR DERABLES Final Result * Type and Screen (with Reflex Antibody ID) (09/16/2024 8:13 AM CDT) ABORh A Pos Not applicable 09/16/2024 8:58 AM CDT STRM Antibody Screen Negative Negative 09/16/2024 9:09 AM CDT STRM Type & Screen Expiration 09/19/2024 23:59 09/16/2024 8:58 AM CDT STRM Testing Location [facility] DEFAULT 09/16/2024 8:25 AM CDT STRM Blood (Blood, Venous) 09/16/2024 8:13 AM CDT 09/16/2024 8:25 AM CDT Ashely Hines M.D. LAB BLOOD BANK TEST ORDERAB LES Final Result Performing Organization Address City/[facility]/ZIP Co de Phone Number [facility] [address] [place] [address], [facility] [address] [place] [address] * ROBOTIC-ASSISTED ABDOMINAL EXPLORATION-Surgery Image Exam (09/16/2024 6:35 AM CDT) Narrative [facility] - 09/16/2024 1:07 PM CDT This order has been created and auto-finalized to support the import of images acquired without order. The clinical documentation to support these images can be found on the encounter that produced images. us Provider Not In System IMG NON RAD IMAGING PROCE DURES Final Result Performing Organization Address City/[facility] Co de Phone Number [facility] NA from Last 3 Months Insurance [facility] MEDICARE Advance Directives For more information, please contact: [phone] Documents on File Type Date Recorded Patient Whizzer Hand Expl anation Advance Directives 07/19/2021 3:13 PM Denise Castellanos HCPOA/ADVOCATE/AGENT/R EPRESENTATIVE/SURROGAT E * Full Code (Latest Code Status on File) Date Activated Date Inactivated Comments 09/16/2024 2:34 PM 09/25/2024 12:59 PM Question Answer Comments Full Code: Discussed * Full Code Date Activated Date Inactivated Comments 09/16/2024 7:01 AM 09/16/2024 2:34 PM Question Answer Comments Full Code: Not Discussed Due to: Patient not available Healthcare Agents on File Name Relationship Healthcare Agent Relationshi p Communication Denise Blanco Spouse Health Care Agent [phone] (Home) Garfield Blanco Son First Alternate Health Care Agent Alejandra Castellanos Daughter Second Alternate Health Care Agent
--- OUTSIDE RECORDS SUMMARY | 2024-11-10 18:16 | XMS_ITS | Clinical Summary ---
Author Organization [facility] Address [address] [place] [address] Care Team Providers Care Men'S Basketball Coach Name Role Phone Katherine Hugo Pcp Primary Care Provider [phone] Source Comments PLEASE NOTE, if this patient is a minor, it may be UNLAWFUL to discuss sensitive information that is contained in these records (such as FAMILY PLANNING, MENTAL HEALTH or SUBSTANCE ABUSE) with the minor patient's parent or other person without the patient's specific authorization.BENITEZ Allergies Active Allergy Reactions Criticality Noted Date Comments Morphine 07/08/2008 Other Reaction(s): Other - Describe In Comment Field Feels out of control with medication Makes pt foggy; no allergy Nitrofurantoin 07/08/2008 Other Reaction(s): Other - Describe In Comment Field Sores in Mouth Sores in mouth Penicillins Itching,Rash Low 01/01/2007 Small does are ok, will break out in a rash if receives large doses With high doses only Sulfa (Sulfonamide Antibiotics) 01/01/2007 Medications nitroglycerin (NITROSTAT) 0.[address] 1 Tablet (0.4 mg) under the tongue every 5 minutes if needed for Chest Pain. If patient requesting greater than 25 doses in 30 days, to provider to authorize 3 Active atorvastatin (LIPITOR) 40 mg tablet Take 1 Tablet by mouth daily. 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 FRANKY Hughes .................... 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 Overview (07/13/2023): Has neobladder made from SI Screen for colon cancer 05/09/2011 Overview (07/13/2023): CT Colonography in 2019 - repeat in 5 years Bunion 02/13/2008 Overview (07/13/2023): L Foot HYPERLIPIDEMIA MIXED 01/09/2007 Immunizations Immunization Administration Dates Next Due DTAP 01/09/2007 Flu, Preservative Free 05/11/2023,2021,07/23/2021,04/22 INFLUENZA, SEASONAL, INJECTABLE 06/06/20 13,05/14/2012,05/09/2011,04/23,04/26/2008,04/26/2006 INFLUENZA, SEASONAL, INJECTA BLE, PRESERVATIVE FREE 05/09/2011 INFLUENZA, UNSPECIFIED 04/15/2020 Influenza (FLUAD), Trivalent , Adjuvanted 04/25/2018,07/04/2017 Influenza (FLUZONE), high-do se, trivalent, PF 04/23/2019,04/25/2018,03/28/2016,04/07 Novel [id number], all formulations 07/15/2009 PNEUMOCOCCAL CONJUGATE PCV 13 09/22/2015 PNEUMOCOCCAL POLYSACCHARIDE PPV23 (Pneumovax 23) 06/06/2013 TDAP 01/22/2018,01/09/2007 Td(adult),2 Lf tetanus toxoid,preservative free 04/28/1997 ZOSTER VACCINE, RECOMBINANT (SHINGRIX) 0,04/23/2019 Zoster, Live Vaccine (Zostavax) 02/13/2008 Social History Tobacco Use Types Packs/Day Years Used Date Smoking Tobacco: Never Assessed Social Connections Answer Date Recorded Connectedness 0 03/10/2024 Financial Resource Strain Answer Date R ecorded Financial Resource Strain 0 2023 Stress Answer Date Recorded Stress 0 07/18/2023 Physical Activity Answer Date Recorded Physical Activity 0 07/18/2023 Food Insecurity Answer Date Recorded Food 0 03/21/2024 Transportation Needs Answer Date Record ed Transportation 0 07/18/2023 Housing Stability Answer Date Recorded Housing 0 07/18/2023 Safety and Environment Answer Date Reuben rded Safety 0 07/18/2023 Utilities Answer Date Recorded Utilities 0 07/18/2023 Employment Answer Date Recorded Stress 0 03/10/2024 Sex and Gender Information Value Date Recorded Sex Assigned at Not on file Legal Sex Male 3:17 PM PST Gender Identity Not on file Sexual Orientation Not on file Last Filed Vital Signs Vital Sign Reading Time Taken Comments Blood Pressure 122/78 01/18/2024 9:01 PM CDT Pulse 79 01/18/2024 9:01 PM CDT Temperature 36.2 C (97.1 F) 01/18/2024 2:18 PM CDT Respiratory Rate 15 01/18/2024 4:01 PM CDT Oxygen Saturation 92% 01/18/2024 4:01 PM CDT Inhaled Oxygen Concentration - - Weight 82.6 kg (182 lb) 01/18/2024 3:06 PM CDT Height 180.3 cm (5' 11) 01/18/2024 3:06 PM CDT Body Mass Index 25.38 01/18/2024 3:06 PM CDT Plan of Treatment Health Maintenance Due Date Last Done Comments Depression Monitoring 1945 Tobacco Screening 1945 Medicare Annual Wellness Visit 1965 Falls Prevention 2012 Nck-SOOOE-52 ( season) 2024 05/11/2023, 06/03/2022, 04/28/2021, Additional history exists Imm-Influenza (#1) 2024 05/11/2023, 1 08/04/2021, 07/23/2021, Additional history exists Alcohol and Drug Screen 06/26/2024 Lipid Screening 11/23/2024 11/24/2023 Diabetes Screening 01/17/2027 01/18/2024, 0 11/24/2023, 11/24/2023, Additional history exists Imm-DTaP/Tdap/Td (4 - Td or Tdap) 01/23/2028 01/22/2018, 01/09/2007, 01/09/2007, Additional history exists Imm-Pneumococcal 65+ Completed 09/22/2015, 06/06/20 13 Hepatitis C Screening Completed 01/22/2018 Imm-Zoster, Recombinant Completed 06/27/19, 04/23/2019, 02/13/2008 Colorectal Cancer Screening Discontinued FIT/gFOBT Discontinued 11/14/2022, 05/27, 06/18/2021 Fecal DNA Discontinued 11/14/2022, 11/14/2022 CT Colonography Discontinued Colonoscopy Discontinued Flexible Sigmoidoscopy Discontinued Procedures Procedure Name Priority Date/Time Associated Diagnosis Comments COMPREHENSIVE METABOLIC PANEL STAT 01/18/2024 3:04 PM CDT from Last 3 Months or Most Recently Relevant to Health Maintenance Results * (ABNORMAL) Comprehensive metabolic panel (01/18/2024 3:04 PM CDT) Sodium 140.0 137.0 - 145.0 mmol/L 01/18/2024 3:27 PM CDT [facility] Potassium 4.0 3.5 - 5.1 mmol/L 01/18/2024 3:27 PM [facility] Chloride 102 98 - 107 mmol/L 01/18/2024 3:27 PM [facility] CO2 24.0 22.0 - 30.0 mmol/L 01/18/2024 3:27 PM [facility] Anion Gap 14(A) 3 - 11 mmol/L 01/18/2024 3:27 PM [facility] BUN 19.0 9.0 - 20.0 mg/dL 01/18/2024 3:27 PM [facility] Creatinine 1.15 0.66 - 1.25 mg/dL 01/18/2024 3:27 PM [facility] BUN/Creatinine Ratio 16.52 01/18/2024 3:27 PM [facility] Glucose 100 75 - 100 mg/dL 01/18/2024 3:27 PM [facility] Calcium 9.5 8.4 - 10.2 mg/dL 01/18/2024 3:27 PM [facility] AST 26 17 - 59 U/L 01/18/2024 3:27 PM [facility] ALT (SGPT) 22 <50 U/L 01/18/2024 3:27 PM [facility] Alkaline Phosphatase 107 38 - 126 U/L 01/18/2024 3:27 PM [facility] Total Protein 8.7(A) 6.3 - 8.2 g/dL 01/18/2024 3:27 PM [facility] Albumin 5.1(A) 3.5 - 5.0 g/dL 01/18/2024 3:27 PM [facility] Total Bilirubin 1.5(A) <=1.3 mg/dL 01/18/2024 3:27 PM [facility] eGFR 66.0(A) >90.0 mL/min/1.7 3m*2 01/18/2024 3:27 PM [facility] Blood Venous blood specimen / Unknown Venipuncture / Unknown 01/18/2024 3:04 PM T 01/18/2024 3:05 PM CDT us Sandie Means Ced DO LAB BLOOD ORDERABLES Final R esult [facility] [address] [id number], from Last 3 Months or Most Recently Relevant to Health Maintenance Insurance MEDICARE - [place] [facility] [place] [id number] Care Teams Men'S Basketball Coach Relationship Specialty Start Date End Date [place], Pcp [address] [place] [id number] PCP - General 01/18/24
--- OUTSIDE RECORDS SUMMARY | 2024-11-10 18:16 | XMS_ITS | Encounter Summary ---
Author Organization [facility] Address [address] [place] [address] Care Team Providers Care Senior Analysis Specialist Name Role Phone Unavailable Primary Care Provider Unavailabl e Reason for Visit * Reason Comments Other PVR * Outpatient (Routine) - Closed Specialty Diagnoses / Procedures Referred By Drew warren Referred To Contact Diagnoses Injury Bladder Initial Neobladder Status Post Procedures URO Residual urine - ultrasound Tiffany Toure M.D., M.S. [address] [place] [phone] Phone: tel: fax: [facility] Referral ID Status Reason Start Date Expiration Date Visits Re quested Visits Authorized [id number] Closed 10/08/2024 01/08/2026 1 1 Encounter Details Date Type Department Care Team (Late st Contact Info) Description 10/08/2024 2:30 PM CDT Procedure visit Department of Urology in [place], [place] [address] [place] [phone] Tiffany Toure M.D., M.S. [address] [place] [phone] Hannah Tafoya R.N. 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 - 10/08/2024 2:30 PM CDT CHIEF COMPLAINT/REASON FOR VISIT Residual Urine by ultrasound ASSESSMENT / PLAN Genaro Blanco is here for residual check via ultrasound. Genaro Blanco voided 86 mls with an ultrasound residual of 132 mls. Hannah Tafoya R.N. documented in this encounter Plan of Treatment Not on file documented as of this encounter Visit Diagnoses Diagnosis Injury Bladder Initial Neobladder Status Post documented in this encounter
--- OUTSIDE RECORDS SUMMARY | 2024-11-10 18:16 | XMS_ITS | Encounter Summary ---
Author Organization [facility] Address [address] [place] [address] Care Team Providers Care Drywall Foreman Name Role Phone Unavailable Primary Care Provider Unavailabl e Reason for Referral * Outpatient (Routine) - Closed Specialty Diagnoses / Procedures Referred By Drew t Referred To Contact Diagnoses Resection Small Bowel Status Post Procedures DX Abdomen Supine and Upright 2 Views William Briggs M.D. [address] [place] [address] Phone: tel: fax: [facility] Referral ID Status Reason Start Date Expiration Date Visits Re quested Visits Authorized [id number] Closed 09/25/2024 12/26/2025 1 1 Reason for Visit * Outpatient (Routine) - Closed Specialty Diagnoses / Procedures Referred By Drew warren Referred To Contact Diagnoses Resection Small Bowel Status Post Procedures DX Abdomen Supine and Upright 2 Views William Briggs M.D. [address] [place] [address] Phone: tel: fax: [facility] Referral ID Status Reason Start Date Expiration Date Visits Re quested Visits Authorized [id number] Closed 09/25/2024 12/26/2025 1 1 Encounter Details Date Type Department Care Team (Latest Contact Info) Description 10/08/2024 9:00 AM CDT - 10/08/2024 11:59 PM CDT Hospital Encounter Department of Radiology, [facility], in [place], [place] [address] [place] [address] William Briggs M.D. [address] [place] [address] Resection Small Bowel Status Post Discharge Disposition: Home or Self Care Social History Tobacco Use Types Packs/Day Years Used Date Smoking Tobacco: Former Cigarettes 0 06/26/1966 - 04/24/1980 Smokeless Tobacco: Never Alcohol Use Standard Drinks/Week Comments Yes 12 (1 standard drink = 0.6 oz pu re alcohol) [facility] Utilities Answer Date Recorded In the past 12 months has e [facility], gas, oil, or water [employer] threatened to shut off services in your [...] your living situation today? 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 us William Briggs M.D. IMG DIAGNOSTIC IMAGING PROC EDURES Final Result documented in this encounter Visit Diagnoses Diagnosis Resection Small Bowel Status Post documented in this encounter
--- OUTSIDE RECORDS SUMMARY | 2024-11-10 18:16 | XMS_ITS | Encounter Summary ---
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 [address] [place] [phone] Phone: tel: fax: [facility] Referral ID Status Reason Start Date Expiration Date Visits Re quested Visits Authorized [id number] Closed 09/24/2024 03/26/2026 1 1 Reason for Visit * Reason Onset Date Comments Post-op Follow-up 09/24/2024 Encounter Details Date Type Department Care Team (Latest Contact Info) Description 09/24/2024 Clinical Communication [facility] [address] [place] [phone] Hetal Parker APRN, C.N.P., M.S.N. [address] [place] [phone] Post-op Follow-up Social History Tobacco Use Types Packs/Day Years Used Date Smoking Tobacco: Former Cigarettes 0 06/26/1966 - 04/24/1980 Smokeless Tobacco: Never Alcohol Use Standard Drinks/Week Comments Yes 12 (1 standard drink = 0.6 oz pu re alcohol) [facility] Utilities Answer Date Recorded In the past 12 months has e [employer], [employer], oil, or water [employer] threatened to shut off services in your [...] your living situation today? I have a [facility] place to live 09/17/2024 Sex and Gender Information Value Date Recorded Sex Assigned at Male 04/20/2024 9:38 AM CDT Legal Sex Male 9:54 AM CV TECH Gender Identity Male 04/20/2024 9:38 AM CDT Sexual Orientation Straight 04/20/2024 9: 38 AM CDT documented as of this encounter Plan of Treatment Scheduled Referrals Name Type Priority Associated Diagnoses Orde r Schedule Trauma Critical Care and General Surgery office visit (clinic) Outpatient Referral Routine Obstruction Intestinal (HCC) Resection Small Bowel Status Post Expected: 10/08/2024, Expires: 12/24/2025 documented as of this encounter Visit Diagnoses Diagnosis Obstruction Intestinal (HCC)- Primary Resection Small Bowel Status Post documented in this encounter
[2024-11-10 18:21] VITALS: BP 152/94; PULSE 80; RESP 20; TEMP 37.4; O2SAT 97; BMI 25.2
--- NOTE | 2024-11-10 19:22 | ED_ITS ---
HPI - Fever General Time Seen by Provider: 19:23 <Ariadna Toth MD - Last Filed: 11/10/24 21:40> Date Seen: 11/10/24 <Ariadna Toth MD - Last Filed: 11/10/24 21:40> Chief Complaint: Fever <Ariadna Toth MD - Last Filed: 11/10/24 21:40> Stated Complaint: high fever <Ariadna Toth MD - Last Filed: 11/10/24 21:40> Time Seen by Provider: 11/10/24 19:22 <Ariadna Toth MD - Last Filed: 11/10/24 21:40> Source: patient, family and RN notes reviewed <Ariadna Toth MD - Last Filed: 11/10/24 21:40> Mode of arrival: ambulatory <Ariadna Toth MD - Last Filed: 11/10/24 21:40> Limitations: no limitations <Ariadna Toth MD - Last Filed: 11/10/24 21:40> History of Present Illness HPI Narrative: Genaro is a very pleasant 79-year-old gentleman with history of recent abdominal adhesion lysis complicated by bladder injury who comes to the emergency room with complaints of fever. Patient noted to have bladder cancer and a neobladder many years ago. Subsequent to this surgery he developed recurrent small-bowel obstructions. He underwent robotic adhesion lysis surgery at [facility] in August. Unfortunately during that surgery he had an injury to his bladder once again and was leaking urine. They repaired the bladder and placed a Matos catheter. Also during this surgery they did remove 2 separate sections of small bowel due to narrowing. Patient had been doing well and had been back at [facility] to have the catheter removed. He had no complaints until starting to feel very fatigued with a fever 48 hours ago. He did finally tell his today that he was feeling hot and she took his temp and it was between 102 and 104. Genaro notes he took 1 g of Tylenol at home this afternoon. Genaro does not have any other complaints. He denies sore throat runny nose chest pain cough cold congestion. He has no urinary discomfort. He has no abdominal pain and felt that the surgical incisions looked good. He does spend a lot of time outside but notes no recent tick bites. He has not had any exposures to other illnesses that he knows of. No vomiting diarrhea. <Ariadna Toth MD - Last Filed: 11/10/24 21:40> Related Data Home Medications: Home Medications ?Medication ?Instructions ?Recorded ?Confirmed atorvastatin 40 mg tablet 40 mg PO DAILY 11/10/24 11/10/24 mirtazapine 15 mg tablet 15 mg PO QPM 11/10/24 11/10/24 nitroglycerin 0.4 mg sublingual 0.4 mg sublingual 11/10/24 tablet prednisolone acetate 1 % eye drp 11/10/24 drops,suspension Previous Rx's ?Medication ?Instructions ?Recorded cefdinir 300 mg capsule 300 mg PO BID 7 days #14 caps 11/10/24 <Ariadna Toth MD - Last Filed: 11/10/24 21:40> Allergies/Adverse Reactions: Allergies Allergy/AdvReac Type Severity Reaction Status Date / Time Sulfa (Sulfonamide Allergy Verified 11/10/24 22:06 Antibiotics) <Ariadna Toth MD - Last Filed: 11/10/24 21:40> Review of Systems Status of ROS Reports: 10 or more systems reviewed and unremarkable except as noted in History and below <Ariadna Toth MD - Last Filed: 11/10/24 21:40> Const Reports: fever, chills and fatigue <Ariadna Toth MD - Last Filed: 11/10/24 21:40> Eyes Denies: change in vision <Ariadna Toth MD - Last Filed: 11/10/24 21:40> ENMT Denies: throat pain, neck pain, throat swelling, difficulty swallowing or mouth pain <Ariadna Toth MD - Last Filed: 11/10/24 21:40> Cardio Denies: chest pain, palpitations, edema, swelling of feet/ankles, lightheadedness or shortness of breath with exertion <Ariadna Toth MD - Last Filed: 11/10/24 21:40> Resp Denies: shortness of breath or cough <Ariadna Toth MD - Last Filed: 11/10/24 21:40> GI Denies: abdominal pain, nausea, vomiting, diarrhea, difficulty swallowing or blood in stool <Ariadna Toth MD - Last Filed: 11/10/24 21:40> Denies: painful urination, urinary frequency, urinary urgency or blood in urine <Ariadna Toth MD - Last Filed: 11/10/24 21:40> Musculo Denies: neck pain <Ariadna Toth MD - Last Filed: 11/10/24 21:40> Integ/Breast Denies: rash <Ariadna Toth MD - Last Filed: 11/10/24 21:40> Neuro Denies: headache or weakness in extremities <Ariadna Toth MD - Last Filed: 11/10/24 21:40> Endo Reports: fatigue <Ariadna Toth MD - Last Filed: 11/10/24 21:40> Allergy/Immuno Denies: throat swelling <Ariadna Toth MD - Last Filed: 11/10/24 21:40> Exam Narrative Exam Narrative: Genaro is alert and oriented. He is in no acute distress. Mentation speech normal. Face symmetrical. Neck is supple. No significant erythema in the posterior oropharynx. No lymphadenopathy. Heart with a regular rate and rhythm. Lungs are clear bilaterally. Abdomen is soft nontender. He has well- healed surgical wounds without any erythema or drainage. Distally he has scant peripheral edema with no rashes and he is moving all of his extremities. <Ariadna Toth MD - Last Filed: 11/10/24 21:40> Const Vital Signs, click to edit/add: Vital Signs - 24 hr 11/10/24 18:21 Temperature 99.4 F Pulse Rate [Pulse Oximeter] 80 Respiratory Rate 20 Blood Pressure [Right Upper Arm] 152/94 H Pulse Oximetry 97 Oxygen Delivery Method Room Air <Ariadna Toth MD - Last Filed: 11/10/24 21:40> Vital Signs - 24 hr 11/10/24 18:21 Temperature 99.4 F Pulse Rate [Pulse Oximeter] 80 Respiratory Rate 20 Blood Pressure [Right Upper Arm] 152/94 H Pulse Oximetry 97 Oxygen Delivery Method Room Air <Gume Larsen MD - Last Filed: 11/10/24 22:27> Documenting provider has reviewed patient's vital signs: yes <Ariadna Toth MD - Last Filed: 11/10/24 21:40> Course Course ED Course: At this time patient is experiencing fever of unknown origin. His only other symptom at this time is fatigue. Certainly differential diagnosis includes but is not limited to UTI, sepsis, viral infection, pneumonia, peritonitis,. However he has no pain at this time. Will order IV placement with a CBC comprehensive panel CRP lactate blood cultures urinalysis chest x-ray swab for COVID influenza RSV and strep. If this is negative will follow with a tick panel. <Ariadna Toth MD - Last Filed: 11/10/24 21:40> Reevaluation(s) Reevaluation #1: Patient notes he continues to feel well. He has been afebrile with a temp of 99? for here in the ED. His urine returns with a suggestion of UTI. However giving a fever up to 100 and for I would have expected more white cells which are currently numbering 5-10 with positive nitrites. Given his recent history will order CT of the chest abdomen and pelvis. Chest x-ray was clear. If this indeed is also negative would treat with antibiotics for UTI but would also order tick-borne panel. <Ariadna Toth MD - Last Filed: 11/10/24 21:40> Reevaluation #2: Progress note-patient signed out to Dr. Larsen by Dr. Chan at shift change about 9:45 p.m. on 11/10. This is a pleasant 79-year-old male with a complex past history notable for history of bladder cancer with neobladder placement years ago, and recent bowel surgery done at [facility] for lysis of adhesions. That bowel surgery was complicated by injury to his neobladder so he had a full that a catheter in place for a couple months after surgery and just had it removed at the end of September a few weeks ago. He presents with fever up to 104 F at home for the past couple of days as long was generalized weakness but no other definite localizing symptoms. Workup so far shows abnormal urinalysis although not strongly abnormal. No completely definitive source for fever identified yet. Dr. Chan is ordered Rocephin to treat for probable UTI and is ordered CT scan of the patient's chest/abdomen/pelvis to look for other intra-abdominal or internal sources of infection. In particular of concern here would be potential risk for intra-abdominal abscesses given his recent complex bowel surgery. Fortunately CT scan came back normal. CT chest/abdomen/pelvis Findings: Chest: Lungs: No consolidation. No effusion. No pneumothorax. Mediastinum: No acute abnormality appreciated. Calcified coronary arterial and aortic atherosclerosis. Mild dilation of the ascending aorta measuring 4.2 centimeters. Lymph nodes: No gross lymphadenopathy. Soft tissues: No acute abnormality appreciated. Bones: No acute abnormality appreciated. Degenerative changes spine and shoulders. Right humeral anchors. Abdomen and Pelvis: Hepatobiliary: No significant parenchymal abnormality is appreciated. Spleen: Unremarkable. Pancreas: No acute abnormality appreciated. Adrenal glands: No acute abnormality appreciated. Kidneys: No significant parenchymal abnormality appreciated. No visualized calculi. No hydronephrosis. Bowel: Small bowel resection and anastomosis. No obstruction. No focal perienteric or pericolonic stranding is appreciated. Vascular: No acute abnormality appreciated. Lymph nodes: No gross lymphadenopathy. Peritoneum: No free air. No free fluid. 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 Soft tissues: No acute abnormality appreciated. Postsurgical changes to the ventral abdominal wall. Bones: No acute fracture. No lytic or blastic lesion. Degenerative changes of the spine and pelvis. Impression: No acute abnormality appreciated. Dr. Chan's plan for the patient that since he is overall defervesced here in the ER and is hemodynamically stable and nontoxic is that he can go home on oral antibiotics to treat his UTI eye. He has already received 1 g of Rocephin IV here in the ER. Dr. Chan also requested that Dr. Larsen order a Lyme and tick-borne illness panel since [place] This is ordered and added on to his previously drawn labs. Will treat him for UTI at this point and await results of the tick-borne panel before initiating other antibiotics. Discussed with the patient that at this point there is signs of UTI but he needs to monitor carefully for any other evolving symptoms that might suggest alternative infections in addition to the UTI. Also discussed potential for worsening urinary infection symptoms and need to return to the ER right away. Patient is agreeable with plan of care. Discussed test results so far, outstanding test results, plan of care, rash now for antibiotics to treat presumed UTI, need for follow-up, precautions for return. Patient and his are agreeable. <Gume Larsen MD - Last Filed: 11/10/24 22:27> Vital Signs Vital signs: Initial Vital Signs Temperature 99.4 F 11/10/24 18:21 Temperature Source Oral 05/18/25 18:21 Pulse Rate 80 11/10/24 18:21 Respiratory Rate 20 11/10/24 18:21 Blood Pressure 152/94 H 11/10/24 18:21 Blood Pressure Mean 113 H 11/10/24 18:21 Pulse Oximetry 97 11/10/24 18:21 Oxygen Delivery Method Room Air 11/10/24 18:21 Vital Signs Temperature 99.4 F 11/10/24 18:21 Pulse Rate 80 11/10/24 18:21 Respiratory Rate 20 11/10/24 18:21 Blood Pressure 152/94 H 11/10/24 18:21 Pulse Oximetry 97 11/10/24 18:21 Oxygen Delivery Method Room Air 11/10/24 18:21 Temperature 99.4 F 11/10/24 18:21 Pulse Rate 80 11/10/24 18:21 Respiratory Rate 20 11/10/24 18:21 Blood Pressure 152/94 H 11/10/24 18:21 Pulse Oximetry 97 11/10/24 18:21 Oxygen Delivery Method Room Air 11/10/24 18:21 <Ariadna Toth MD - Last Filed: 11/10/24 21:40> Initial Vital Signs Temperature 99.4 F 11/10/24 18:21 Temperature Source Oral 11/10/24 18:21 Pulse Rate 80 11/10/24 18:21 Respiratory Rate 11/10/24 18:21 Blood Pressure 152/94 H 11/10/24 18:21 Blood Pressure Mean 113 H 11/10/24 18:21 Pulse Oximetry 97 11/10/24 18:21 Oxygen Delivery Method Room Air 11/10/24 18:21 Vital Signs Temperature 99.4 F 11/10/24 18:21 Pulse Rate 80 11/10/24 18:21 Respiratory Rate 20 11/10/24 18:21 Blood Pressure 152/94 H 11/10/24 18:21 Pulse Oximetry 97 11/10/24 18:21 Oxygen Delivery Method Room Air 11/10/24 18:21 Temperature 99.4 F 11/10/24 18:21 Pulse Rate 80 11/10/24 18:21 Respiratory Rate 20 11/10/24 18:21 Blood Pressure 152/94 H 11/10/24 18:21 Pulse Oximetry 97 11/10/24 18:21 Oxygen Delivery Method Room Air 11/10/24 18:21 <Gume Larsen MD - Last Filed: 11/10/24 22:27> Medications Administered Medications: Generic Name Dose Route Start Last Admin Trade Name Freq PRN Reason Stop Dose Admin Ceftriaxone Sodium 1 gm/ 100 mls @ 200 mls/hr 11/10/24 21:37 11/10/24 22:05 Sodium Chloride IVPB 11/10/24 21:38 Infused ONCE ONE Infusion Discontinued Medications Generic Name Dose Route Start Last Admin Trade Name Freq PRN Reason Stop Dose Admin Sodium Chloride 1,000 mls @ 1,000 mls/hr 11/10/24 19:38 11/10/24 20:41 0.9 % Sodium Chloride 1000 Ml IV 11/10/24 20:37 Infused .Q1H JOHN PAUL Infusion <Ariadna Toth MD - Last Filed: 11/10/24 21:40> Generic Name Dose Route Start Last Admin Trade Name Freq PRN Reason Stop Dose Admin Ceftriaxone Sodium 1 gm/ 100 mls @ 200 mls/hr 11/10/24 21:37 11/10/24 22:05 Sodium Chloride IVPB 11/10/24 21:38 Infused ONCE ONE Infusion Discontinued Medications Generic Name Dose Route Start Last Admin Trade Name Freq PRN Reason Stop Dose Admin Sodium Chloride 1,000 mls @ 1,000 mls/hr 11/10/24 19:38 11/10/24 20:41 0.9 % Sodium Chloride 1000 Ml IV 11/10/24 20:37 Infused .Q1H JOHN PAUL Infusion <Gume Larsen MD - Last Filed: 11/10/24 22:27> MDM - Fever MDM Narrative Medical decision making narrative: 1. Fever of unknown origin-urinalysis is abnormal but patient is not describing any significant urinary symptoms. At this time patient will undergo CT of the chest abdomen and pelvis. Blood cultures have been collected. White count reassuring CRP slightly elevated at 1.2. This gentleman does not have evidence of sepsis at this time but is high risk given his recent abdominal surgery and impressive temperature. 2. Will be signing out this patient to my colleague Dr. Larsen. <Ariadna Toth MD - Last Filed: 11/10/24 21:40> Lab Data Attestation: I reviewed the patient's lab results. <Ariadna Toth MD - Last Filed: 11/10/24 21:40> Labs: Lab Results 11/10/24 11/10/24 11/10/24 Range/Units 19:48 19:52 20:45 WBC 10.38 (4.50-11.00) K/uL RBC 4.45 (4.30-5.90) m/uL Hgb 14.1 (13.5-17.5) gm/dL Hct 43.0 (37.0-53.0) % MCV 97 (80-100) fL MCH 32 (26-34) pg MCHC 33 (32-36) gm/dL RDW Coeff of Millie 12.3 (11.5-15.5) % Plt Count 223 (140-440) K/uL Neut % (Auto) 81.6 H (42.0-72.0) % Lymph % (Auto) 11.6 L (20-44) % [place] % (Auto) 5.9 (0.0-11.0) % Eos % (Auto) 0.6 (0.0-7.0) % Baso % (Auto) 0.2 (0.0-3.0) % Neut # (Auto) 8.50 H (1.7-7.0) K/uL Lymph # (Auto) 1.20 (0.90-2.90) K/uL [place] # (Auto) 0.60 (0.00-0.90) K/UL Eos # (Auto) 0.06 (0.00-0.50) K/uL Baso # (Auto) 0.02 (0.00-0.30) K/uL Abs Immat Gran (auto) 0.01 (0.00-0.30) K/uL Imm/Tot Granulo (auto) 0.1 % Sodium 138 (135-149) mmol/L Potassium 3.9 (3.6-5.1) mmol/L Chloride 105 (96-114) mmol/L Carbon Dioxide 24 (20-32) mmol/L Anion Gap 9 (7-15) mEq/L BUN 15 (7-30) mg/dL Creatinine 1.0 (0.5-1.5) mg/dL Estimated Creat Clear 65.89 Estimated GFR 78 ml/min Glucose 104 (60-115) mg/dL Lactate 1.0 (0.5-1.9) mmol/L Calcium 9.2 (8.4-10.6) mg/dL Total Bilirubin 0.8 (0.1-1.5) mg/dL AST 27 (12-35) U/L ALT 19 (4-50) U/L Alkaline Phosphatase 86 (40-150) U/L C-Reactive Protein 1.2 H (0.5-1.0) mg/dL Total Protein 7.9 (6.0-8.3) g/dL Albumin 4.6 (3.3-5.0) g/dL Urine Color Yellow (Yellow) Urine Appearance Clear (Clear) Urine pH 6.5 (5.0-8.5) Ur Specific [place] 1.015 (1.000-1.030) Urine Protein Negative (Negative) Urine Glucose (UA) Negative (Negative) Urine Ketones Negative (Negative) Urine Blood Trace-lysed A (Negative) Urine Nitrite Positive A (Negative) Urine Bilirubin Negative (Negative) Urine Urobilinogen 0.2 (0.2-1.0) Ur Leukocyte Esterase 1+ A (Negative) Urine RBC 0-2 (0-2) Urine WBC 5-10 A (0-5) Ur Squamous Epith Cells None (None-Few) Urine Bacteria Many A (None) SARS-CoV-2 (PCR) Negative SARS-CoV-2 (Negative) Influenza Type A (PCR) Negative PCR FLU A (Negative) Influenza Type B (PCR) Negative PCR FLU B (Negative) RSV (PCR) Negative PCR RSV (Negative) Group A Strep DNA NOT DETECTED (Not Detectd) <Ariadna Toth MD - Last Filed: 11/10/24 21:40> Lab Results 11/10/24 11/10/24 11/10/24 Range/Units 19:48 19:52 20:45 WBC 10.38 (4.50-11.00) K/uL RBC 4.45 (4.30-5.90) m/uL Hgb 14.1 (13.5-17.5) gm/dL Hct 43.0 (37.0-53.0) % MCV 97 (80-100) fL MCH 32 (26-34) pg MCHC 33 (32-36) gm/dL RDW Coeff of Millie 12.3 (11.5-15.5) % Plt Count 223 (140-440) K/uL Neut % (Auto) 81.6 H (42.0-72.0) % Lymph % (Auto) 11.6 L (20-44) % [place] % (Auto) 5.9 (0.0-11.0) % Eos % (Auto) 0.6 (0.0-7.0) % Baso % (Auto) 0.2 (0.0-3.0) % Neut # (Auto) 8.50 H (1.7-7.0) K/uL Lymph # (Auto) 1.20 (0.90-2.90) K/uL [place] # (Auto) 0.60 (0.00-0.90) K/UL Eos # (Auto) 0.06 (0.00-0.50) K/uL Baso # (Auto) 0.02 (0.00-0.30) K/uL Abs Immat Gran (auto) 0.01 (0.00-0.30) K/uL Imm/Tot Granulo (auto) 0.1 % Sodium 138 (135-149) mmol/L Potassium 3.9 (3.6-5.1) mmol/L Chloride 105 (96-114) mmol/L Carbon Dioxide 24 (20-32) mmol/L Anion Gap 9 (7-15) mEq/L BUN 15 (7-30) mg/dL Creatinine 1.0 (0.5-1.5) mg/dL Estimated Creat Clear 65.89 Estimated GFR 78 ml/min Glucose 104 (60-115) mg/dL Lactate 1.0 (0.5-1.9) mmol/L Calcium 9.2 (8.4-10.6) mg/dL Total Bilirubin 0.8 (0.1-1.5) mg/dL AST 27 (12-35) U/L ALT 19 (4-50) U/L Alkaline Phosphatase 86 (40-150) U/L C-Reactive Protein 1.2 H (0.5-1.0) mg/dL Total Protein 7.9 (6.0-8.3) g/dL Albumin 4.6 (3.3-5.0) g/dL Urine Color Yellow (Yellow) Urine Appearance Clear (Clear) Urine pH 6.5 (5.0-8.5) Ur Specific [place] 1.015 (1.000-1.030) Urine Protein Negative (Negative) Urine Glucose (UA) Negative (Negative) Urine Ketones Negative (Negative) Urine Blood Trace-lysed A (Negative) Urine Nitrite Positive A (Negative) Urine Bilirubin Negative (Negative) Urine Urobilinogen 0.2 (0.2-1.0) Ur Leukocyte Esterase 1+ A (Negative) Urine RBC 0-2 (0-2) Urine WBC 5-10 A (0-5) Ur Squamous Epith Cells None (None-Few) Urine Bacteria Many A (None) SARS-CoV-2 (PCR) Negative SARS-CoV-2 (Negative) Influenza Type A (PCR) Negative PCR FLU A (Negative) Influenza Type B (PCR) Negative PCR FLU B (Negative) RSV (PCR) Negative PCR RSV (Negative) Group A Strep DNA NOT DETECTED (Not Detectd) <Gume Larsen MD - Last Filed: 11/10/24 22:27> Imaging Data Chest x-ray: Attestation: I have reviewed the pertinent imaging results. <Ariadna Toth MD - Last Filed: 11/10/24 21:40> My impression: By my read no obvious infiltrate <Ariadna Toth MD - Last Filed: 11/10/24 21:40> Radiologist's impression: Cardiovascular and mediastinum: Heart size and vasculature are normal in caliber and appearance. Mediastinum is within normal limits. Lungs and pleural space: Lungs are clear. No sign of infiltrate or mass. No sign of pleural effusion. No pneumothorax. Bones and soft tissues: No significant findings. IMPRESSION: Unremarkable chest. <Ariadna Toth MD - Last Filed: 11/10/24 21:40> Discharge Plan Discharge Clinical Impression: Fever of unknown origin, Acute UTI <Ariadna Toth MD - Last Filed: 11/10/24 21:40> Patient Disposition: Home, Self-Care <Ariadna Toth MD - Last Filed: 11/10/24 21:40> Condition: Stable <Ariadna Toth MD - Last Filed: 11/10/24 21:40> Instructions: Urinary Tract Infection in Men (ED), Urinary Tract Infection in Men (DC) <Ariadna Toth MD - Last Filed: 11/10/24 21:40> Additional Instructions: As we discussed, please follow-up with your doctors at [facility] for recheck within the next 24-48 hours. In the meantime if you have any worsening symptoms or any concerns such as higher fever, worsening weakness, vomiting, trouble breathing, cough, abdominal pain, or any other concerns, please come back to the ER right away to be rechecked. There are blood test results that were drawn for you tonight that have not returned yet. These blood test results include blood cultures and results of tests to look for tick-borne infections. You will receive a phone call from the [facility] [place] during the next 24-72 hours if these results are positive. <Ariadna Toth MD - Last Filed: 11/10/24 21:40> Prescriptions: New cefdinir 300 mg capsule 300 mg PO BID 7 Days Qty: 14 0RF No Action atorvastatin 40 mg tablet 40 mg PO DAILY prednisolone acetate 1 % drops,suspension Patient Comments: PLACE 1 DROP INTO RIGHT EYE THREE TIMES A DAY FOR 7 DAYS THEN INSTILL ONE DROP TO THE AFFECTED EYE(S) EVERY DAY FOR 7 DAYS THEN DISCONTINUE nitroglycerin 0.4 mg tablet, sublingual 0.4 mg sublingual mirtazapine 15 mg tablet 15 mg PO QPM <Ariadna Toth MD - Last Filed: 11/10/24 21:40> Follow Up/Referrals: Montrell Reeder MD [Primary Care Provider] - <Ariadna Toth MD - Last Filed: 11/10/24 21:40> Stand Alone Forms: [place] [employer] Info Instructions <Ariadna Toth MD - Last Filed: 11/10/24 21:40>
--- NOTE | 2024-11-10 19:37 | CRLHL7_ITS ---
For Patients: As a result of the Cures Act, medical imaging exams and procedure reports are released immediately into your electronic medical record. You may view this report before your referring provider. If you have questions, please contact your health care provider. INDICATION: Fever. TECHNIQUE: Chest 1 view. COMPARISON: 23 December 2017 FINDINGS: Cardiovascular and mediastinum: Heart size and vasculature are normal in caliber and appearance. Mediastinum is within normal limits. Lungs and pleural space: Lungs are clear. No sign of infiltrate or mass. No sign of pleural effusion. No pneumothorax. Bones and soft tissues: No significant findings. IMPRESSION: Unremarkable chest. Dictated by Naeem Galeano MD @ 11/10/2024 8:20:06 PM (Electronically Signed)
--- OUTSIDE RECORDS SUMMARY | 2024-11-10 19:46 | XMS_ITS | Encounter Summary ---
Author Organization [facility] Address [address] [place] [address] Care Team Providers Care Supervisor Production Name Role Phone Unavailable Primary Care Provider Unavailabl e Reason for Referral * MRI/CAT/PET Scan (Routine) - Closed Specialty Diagnoses / Procedures Referred By Drew warren Referred To Contact Radiology Diagnoses Personal History Of Malignant Neoplasm Of Bladder Procedures CT Cystogram without IV Contrast Zeinab Frederick M.D. [address] [place] [phone] Phone: tel: fax: [facility] Referral ID Status Reason Start Date Expiration Date Visits Re quested Visits Authorized [id number] Closed 09/17/2024 12/18/2025 1 1 Encounter Details Date Type Department Care Team (Late st Contact Info) Description 09/17/2024 Orders Only Department of Urology in [place], [place] [address] [place] [phone] Zeinab Frederick M.D. [address] [place] [phone] Personal History Of Malignant Neoplasm Of Bladder (Primary Dx) Social History Tobacco Use Types Packs/Day Years Used Date Smoking Tobacco: Former Cigarettes 0 06/26/1966 - 04/24/1980 Smokeless Tobacco: Never Alcohol Use Standard Drinks/Week Comments Yes 12 (1 standard drink = 0.6 oz pu re alcohol) [facility] Utilities Answer Date Recorded In the past 12 months has th e Clew, gas, oil, or water [employer] threatened to shut off services in your [...] your living situation today? [facility] 09/17/2024 Sex and Gender Information Value Date Recorded Sex Assigned at Male 04/20/2024 9:38 AM CDT Legal Sex Male 9:54 AM SPA RECEPTIONIST Gender Identity Male 04/20/2024 9:38 AM CDT [...] seen on the topogram. Procedure Note Phyllis Coronle M.D. - 10/08/2024 EXAM: CT CYSTOGRAM WITHOUT [...]
--- OUTSIDE RECORDS SUMMARY | 2024-11-10 19:46 | XMS_ITS | Encounter Summary ---
Author Organization [facility] Address [address] [place] [address] Care Team Providers Care Star Route Mail Driver Name Role Phone Unavailable Primary Care Provider Unavailabl e Reason for Referral * Outpatient (Routine) - Closed Specialty Diagnoses / Procedures Referred By Contac t Referred To Contact Diagnoses Obstruction Intestinal (HCC) Procedures URO Urethral cath removal voiding trial (VT) Tiffany Toure M.D., M.S. [address] [place] [phone] Phone: tel: fax: [facility] Referral ID Status Reason Start Date Expiration Date Visits Re quested Visits Authorized [id number] Closed 09/17/2024 12/18/2025 1 1 * Outpatient (Routine) - Closed Specialty Diagnoses / Procedures Referred By Contac t Referred To Contact Urology Diagnoses Obstruction Intestinal (HCC) Tiffany Toure M.D., M.S. [address] [place] [phone] Phone: tel: fax: Eusebia Dhaliwal M.D. [address] [place] [phone] Phone: tel: fax: Referral ID Status Reason Start Date Expiration Date Visits Re quested Visits Authorized [id number] Closed 09/17/2024 03/19/2026 1 1 Encounter Details Date Type Department Care Team (Late st Contact Info) Description 09/17/2024 Clinical Communication RST HIM [address] [place] [address] JulesRenitachencho Linn Social History Tobacco Use Types Packs/Day Years Used Date Smoking Tobacco: Former Cigarettes 0 06/26/1966 - 04/24/1980 Smokeless Tobacco: Never Alcohol Use Standard Drinks/Week Comments Yes 12 (1 standard drink = 0.6 oz pu re alcohol) [facility] Utilities Answer Date Recorded In the past 12 months has [facility] [employer], gas, oil, or water [employer] threatened to shut off services in your [...] your living situation today? I have a [facility] place to live 09/17/2024 Sex and Gender Information Value Date Recorded Sex Assigned at Male 04/20/2024 9:38 AM CDT Legal Sex Male 9:54 AM HOSTESS Gender Identity Male 04/20/2024 9:38 AM CDT [...]
--- OUTSIDE RECORDS SUMMARY | 2024-11-10 19:46 | XMS_ITS | Encounter Summary ---
Author Organization [facility] Address [address] [place] [address] Care Team Providers Care Manager Law Name Role Phone Unavailable Primary Care Provider Unavailabl e Reason for Referral * MRI/CAT/PET Scan (Routine) - Closed Specialty Diagnoses / Procedures Referred By Drew warren Referred To Contact Radiology Diagnoses Personal History Of Malignant Neoplasm Of Bladder Procedures CT Cystogram without IV Contrast Zeinab Frederick M.D. 200 [place] [address] Phone: tel: fax: [facility] Referral ID Status Reason Start Date Expiration Date Visits Re quested Visits Authorized [id number] Closed 09/17/2024 12/18/2025 1 1 Reason for Visit * MRI/CAT/PET Scan (Routine) - Closed Specialty Diagnoses / Procedures Referred By Drew warren Referred To Contact Radiology Diagnoses Personal History Of Malignant Neoplasm Of Bladder Procedures CT Cystogram without IV Contrast Zeinab Frederick M.D. 200 [place] [address] Phone: tel: fax: [facility] Referral ID Status Reason Start Date Expiration Date Visits Re quested Visits Authorized [id number] Closed 09/17/2024 12/18/2025 1 1 Encounter Details Date Type Department Care Team (Latest Contact Info) Description 10/08/2024 7:13 AM CDT - 10/08/2024 8:59 AM CDT Hospital Encounter Department of Radiology, [facility], in [place], [place] [address] [place] [address] Zeinab Frederick M.D. [address] [place] [address] Personal History Of Malignant Neoplasm Of Bladder Discharge Disposition: Home or Self Care Social History Tobacco Use Types Packs/Day Years Used Date Smoking Tobacco: Former Cigarettes 0 06/26/1966 - 04/24/1980 Smokeless Tobacco: Never Alcohol Use Standard Drinks/Week Comments Yes 12 (1 standard drink = 0.6 oz pu re alcohol) [facility] Utilities Answer Date Recorded In the past 12 months has [facility] [employer], gas, oil, or water [employer] threatened to shut off services in your [...] your living situation today? 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
--- OUTSIDE RECORDS SUMMARY | 2024-11-10 19:46 | XMS_ITS | Clinical Summary ---
Author Organization [facility] Address [address] [place] [address] Care Team Providers Care Armed Security Guard Name Role Phone Montrell Reeder MD Primary Care Provider [phone] Allergies Active Allergy Reactions Criticality Noted Date [...] on file Legal Sex Male 3:18 AM HOTEL SECURITY OFFICER Gender Identity Not on file Sexual Orientation Not on file Last Filed Vital Signs Vital Sign Reading Time Taken Comments Blood Pressure 164/105 08/21/2020 4:15 PM HOTEL SECURITY OFFICER Pulse 77 08/21/2020 4:15 PM HOTEL SECURITY OFFICER Temperature 36.7 C (98.1 F) 08/21/2020 12:29 PM HOTEL SECURITY OFFICER Respiratory Rate 8 08/21/2020 4:15 PM HOTEL SECURITY OFFICER Oxygen Saturation 96% 08/21/2020 4:15 PM HOTEL SECURITY OFFICER Inhaled Oxygen Concentration - - Weight 85.6 kg (188 lb 11.2 oz) 04/15/2014 6:34 AM CDT Height 182.9 cm (6' 0.01) 04/15/2014 6:34 AM CD T Body Mass Index 25.59 04/15/2014 6:34 AM CDT Plan of Treatment Not on file Insurance [facility] MEDICARE Care Teams Armed Security Guard Relationship Specialty Start Date End Date Montrell Reeder MD [address] [place] [address] PCP - General 08/21/20
--- OUTSIDE RECORDS SUMMARY | 2024-11-10 19:47 | XMS_ITS | Encounter Summary ---
Author Organization [facility] Address [address] [place] [address] Care Team Providers Care Corking Machine Operator Name Role Phone Unavailable Primary Care Provider Unavailabl e Reason for Referral * Outpatient (Routine) - Closed Specialty Diagnoses / Procedures Referred By Drew warren Referred To Contact Trauma Critical Care and General Surgery Diagnoses Obstruction Intestinal (HCC) Resection Small Bowel Status Post Hetal [place] APRN C.N.P., M.S.N. [address] [place] [phone] Phone: tel: fax: [facility] Referral ID Status Reason Start Date Expiration Date Visits Re quested Visits Authorized [id number] Closed 09/24/2024 03/26/2026 1 1 Reason for Visit * Reason Onset Date Comments Post-op Follow-up 09/24/2024 Encounter Details Date Type Department Care Team (Latest Contact Info) Description 09/24/2024 Clinical Communication RST HIM [address] [place] [phone] Hetal [place] APRN, C.N.P., M.S.N. [address] [place] [phone] Post-op Follow-up Social History Tobacco Use Types Packs/Day Years Used Date Smoking Tobacco: Former Cigarettes 0 06/26/1966 - 04/24/1980 Smokeless Tobacco: Never Alcohol Use Standard Drinks/Week Comments Yes 12 (1 standard drink = 0.6 oz pu re alcohol) [facility] Utilities Answer Date Recorded In the past 12 months has e [employer], oil, or water [employer] threatened to shut off services in your [...] your living situation today? I have a [facility] place to live 09/17/2024 Sex and Gender Information Value Date Recorded Sex Assigned at Male 04/20/2024 9:38 AM CDT Legal Sex Male 9:54 AM SEAM STAYER Gender Identity Male 04/20/2024 9:38 AM CDT [...]
--- OUTSIDE RECORDS SUMMARY | 2024-11-10 19:47 | XMS_ITS | Encounter Summary ---
Author Organization [facility] Address [address] [place] [address] Care Team Providers Care Motor Coach Chauffeur Name Role Phone Unavailable Primary Care Provider Unavailabl e Reason for Referral * Outpatient (Routine) - Closed Specialty Diagnoses / Procedures Referred By Drew t Referred To Contact Diagnoses Resection Small Bowel Status Post Procedures DX Abdomen Supine and Upright 2 Views William Briggs M.D. 200 [place] [address] Phone: tel: fax: [facility] Referral ID Status Reason Start Date Expiration Date Visits Re quested Visits Authorized [id number] Closed 09/25/2024 12/26/2025 1 1 Reason for Visit * Outpatient (Routine) - Closed Specialty Diagnoses / Procedures Referred By Drew warren Referred To Contact Diagnoses Resection Small Bowel Status Post Procedures DX Abdomen Supine and Upright 2 Views William Briggs M.D. 200 [place] [address] Phone: tel: fax: [facility] Referral ID Status Reason Start Date Expiration Date Visits Re quested Visits Authorized [id number] Closed 09/25/2024 12/26/2025 1 1 Encounter Details Date Type Department Care Team (Latest Contact Info) Description 10/08/2024 9:00 AM CDT - 10/08/2024 11:59 PM CDT Hospital Encounter Department of Radiology, [facility], in [place], [place] 200 [place] [address] William Briggs M.D. 200 [place] [address] Resection Small Bowel Status Post Discharge Disposition: Home or Self Care Social History Tobacco Use Types Packs/Day Years Used Date Smoking Tobacco: Former Cigarettes 0 06/26/1966 - 04/24/1980 Smokeless Tobacco: Never Alcohol Use Standard Drinks/Week Comments Yes 12 (1 standard drink = 0.6 oz pu re alcohol) [facility] Utilities Answer Date Recorded In the past 12 months has e [employer], gas, oil, or water [employer] threatened to shut off services in your [...] your living situation today? 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
--- OUTSIDE RECORDS SUMMARY | 2024-11-10 19:47 | XMS_ITS | Clinical Summary ---
Author Organization [facility] Address [address] [place] [address] Care Team Providers Care Biological Science Technician Fish Name Role Phone Katherine Hugo Pcp Primary Care Provider [phone] Source Comments PLEASE NOTE, if this patient [...] (FLUZONE), high-do se, trivalent, PF 04/23/2019,04/25/2018,03/28/2016,04/07 Novel [id number], all formulations 07/15/2009 PNEUMOCOCCAL CONJUGATE PCV 13 [...] Annual Wellness Visit 1965 Falls Prevention 2012 [id number] ( season) 2024 05/11/2023, 06/03/2022, 04/28/2021, Additional [...] - 145.0 mmol/L 01/18/2024 3:27 PM CDT [facility] Potassium 4.0 3.5 - 5.1 mmol/L 01/18/2024 3:27 PM [facility] Chloride 102 98 - 107 mmol/L 01/18/2024 3:27 PM [facility] CO2 24.0 22.0 - 30.0 mmol/L 01/18/2024 3:27 PM [facility] Anion Gap 14(A) 3 - 11 mmol/L 01/18/2024 3:27 PM [facility] BUN 19.0 9.0 - 20.0 mg/dL 01/18/2024 3:27 PM [facility] Creatinine 1.15 0.66 - 1.25 mg/dL 01/18/2024 3:27 PM [facility] BUN/Creatinine Ratio 16.52 01/18/2024 3:27 PM [facility] Glucose 100 75 - 100 mg/dL 01/18/2024 3:27 PM [facility] Calcium 9.5 8.4 - 10.2 mg/dL 01/18/2024 3:27 PM [facility] AST 26 17 - 59 U/L 01/18/2024 3:27 PM [facility] ALT (SGPT) 22 <50 U/L 01/18/2024 3:27 PM [facility] Alkaline Phosphatase 107 38 - 126 U/L 01/18/2024 3:27 PM [facility] Total Protein 8.7(A) 6.3 - 8.2 g/dL 01/18/2024 3:27 PM [facility] Albumin 5.1(A) 3.5 - 5.0 g/dL 01/18/2024 3:27 PM [facility] Total Bilirubin 1.5(A) <=1.3 mg/dL 01/18/2024 3:27 PM [facility] eGFR 66.0(A) >90.0 mL/min/1.7 3m*2 01/18/2024 3:27 PM [facility] Blood Venous blood specimen / Unknown Venipuncture / Unknown 01/18/2024 3:04 PM T 01/18/2024 3:05 PM CDT us Sandie Means Ced DO LAB BLOOD ORDERABLES Final R esult [facility] [address] [place] [address], from Last 3 Months or Most Recently Relevant to Health Maintenance Insurance MEDICARE - [place] [facility] [id number] Care Teams Biological Science Technician Fish Relationship Specialty Start Date End Date [place], Pcp [address] [place] [address] PCP - General 01/18/24
--- OUTSIDE RECORDS SUMMARY | 2024-11-10 19:47 | XMS_ITS | Encounter Summary ---
Author Organization [facility] Address [address] [place] [address] Care Team Providers Care Metal Flow Coordinator Name Role Phone Unavailable Primary Care Provider Unavailabl e Reason for Referral * Outpatient (Routine) - Closed Specialty Diagnoses / Procedures Referred By Drew warren Referred To Contact Diagnoses Injury Bladder Initial Neobladder Status Post Procedures URO Residual urine - ultrasound Tiffany Toure M.D., M.S. [address] [place] [address] Phone: tel: fax: [facility] Referral ID Status Reason Start Date Expiration Date Visits Re quested Visits Authorized [id number] Closed 10/08/2024 01/08/2026 1 1 Reason for Visit * Reason Comments Post-op Visit [facility] post colorectal surgery * Outpatient (Routine) - Closed Specialty Diagnoses / Procedures Referred By Drew warren Referred To Contact Diagnoses Obstruction Intestinal (HCC) Procedures URO Urethral cath removal voiding trial (VT) Tiffany Toure M.D., M.S. [address] [place] [address] Phone: tel: fax: [facility] Referral ID Status Reason Start Date Expiration Date Visits Re quested Visits Authorized [id number] Closed 09/17/2024 12/18/2025 1 1 Encounter Details Date Type Department Care Team (Late st Contact Info) Description 10/08/2024 1:00 PM CDT Procedure visit Department of Urology in [place], [place] [address] [place] [address] Tiffany Toure M.D., M.S. [address] [place] [address] Hannah Tafoya R.N. [address] [place] [address] Injury Bladder Initial (Primary Dx); Obstruction Intestinal (HCC); Neobladder Status Post Social History Tobacco Use Types Packs/Day Years Used Date Smoking Tobacco: Former Cigarettes 0 06/26/1966 - 04/24/1980 Smokeless Tobacco: Never Alcohol Use Standard Drinks/Week Comments Yes 12 (1 standard drink = 0.6 oz pu re alcohol) [facility] [employer]ities Answer Date Recorded In the past 12 months has [facility] [employer], gas, oil, or water [employer] threatened to shut off services in your [...] your living situation today? I have a [facility] place to live 09/17/2024 Sex and Gender Information Value Date Recorded Sex Assigned at Male 04/20/2024 9:38 AM CDT Legal Sex Male 9:54 AM SENIOR CONTROLS TECHNICIAN Gender Identity Male 04/20/2024 9:38 AM CDT [...]
--- OUTSIDE RECORDS SUMMARY | 2024-11-10 19:47 | XMS_ITS | Clinical Summary ---
Author Organization [email or web address] Address [address] [place] [address] Care Team Providers Care Zoning Technician Name Role Phone Montrell Reeder MD Primary Care Provider [phone] Allergies Active Allergy Reactions Criticality Noted Date [...] Angina 09/09/2016 07/01/2020 Chest pain 12/12/2014 10/05/2021 intermediate (current) use of anticoagulants 06/01/2012 04/07/2014 Elevated [...] Description 10/01/2024 9:15 AM CDT Office Visit [facility] [address] [place] [address] Montrell Reeder MD Post-op 09/30/2024 Travel from Last 3 Months Immunizations Immunization Administration Dates Next Due Amb Influenza, Inact (High-d ose Quadrivalent) (Flu Clinic Only) 04/15/2020 COVID-19 VACCINE SPIKEVAX (M ODERNA 50MCG/0.5ML) 12YO+ PFS 05/11/2023 COVID-19 vaccine (Music Connect-Bio NTech 30mcg/0.3mL) PF, MDV 04/28/2021,09/12/2020,08/18/2020 DTaP 01/09/2007 [...] on file Legal Sex Male 5:23 AM GRANITE POLISHER Gender Identity Not on file Sexual Orientation Not on file 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 [employer] Not on file Not on file Not on file Obstetrics History Last Filed Vital Signs Vital Sign Reading Time Taken Comments Blood Pressure 112/77 10/01/2024 9:09 AM CDT Pulse 89 10/01/2024 9:09 AM CDT Temperature 36.6 C (97.9 F) 10/12/2020 9:35 AM CDT Respiratory Rate 16 08/10/2020 2:50 PM GRANITE POLISHER Oxygen Saturation 97% 10/01/2024 9:09 AM CDT Inhaled Oxygen Concentration - - Weight 81.1 kg (178 lb 11.2 oz) 10/01/2024 9:09 AM CDT Height 180.3 cm (5' 11) 11/24/2023 2:01 PM CDT Body Mass Index 24.92 11/24/2023 2:01 PM CDT Plan of Treatment Upcoming Encounters Date Type Department Care Team (Late st Contact Info) Description 11/25/2024 10:00 AM CDT Ancillary Procedure [facility] [address] [place] [address] 12/03/2024 9:00 AM CDT Office Visit [facility] [address] [place] [address] Radha White MD [address] [address] Health Maintenance Due Date Last Done Comments [...] to Health Maintenance Results * ANTI HCV [55506.2] (01/22/2018 12:02 PM CDT) HEPATITIS C ANTIBODY Non-React elaine Non-React elaine 01/22/2018 8:30 PM CDT [facility] Comment:Antibodies to HCV no t detected; does not exclude the possibility of exposure to HCV. Blood BLOOD SPECIMEN / Unknown Venipuncture / Unknown 01/22/2018 12:02 PM CDT 01/22/2018 12:02 PM CDT us Montrell Reeder MD SEND OUTS Final Resu lt [facility] [address] [place] [address], [place] from Last 3 Months or Most Recently Relevant to Health Maintenance Insurance MEDICARE PART A HB ONLY [place] MR PB ONLY [place] BLUE HB ONLY MEDICARE PART B HB ONLY Advance Directives Documents on File Type Date Recorded Patient Load Checker Expl anation Healthcare Directive 07/13/2021 022 * [...] Comments Code Status Discussion: Discussed Care Teams Zoning Technician Relationship Specialty Start Date End Date Montrell Reeder MD [address] [place] [address] PCP - General Family Practice 01/04/16
--- OUTSIDE RECORDS SUMMARY | 2024-11-10 19:47 | XMS_ITS | Encounter Summary ---
Author Organization [facility] Address [address] [place] [address] Care Team Providers Care Facing Baster Jumpbasting Name Role Phone Unavailable Primary Care Provider Unavailabl e Reason for Visit * Reason Comments Follow-up * Outpatient (Routine) - Closed Specialty Diagnoses / Procedures Referred By Drew warren Referred To Contact Trauma Critical Care and General Surgery Diagnoses Obstruction Intestinal (HCC) Resection Small Bowel Status Post Hetal [place] APRN, C.NMiracle., M.S.N. [address] [place] [phone] Phone: tel: fax: [facility] Referral ID Status Reason Start Date Expiration Date Visits Re quested Visits Authorized [id number] Closed 09/24/2024 03/26/2026 1 1 Encounter Details Date Type Department Care Team (Late st Contact Info) Description 10/08/2024 3:30 PM CDT Office Visit Division of Trauma Critical Care and General Surgery in [place], [place] [address] [place] [phone] Hetal [place] APRN, C.N.P., M.S.N. [address] [place] [phone] Leidy Escalona C.N.P., R.N. [address] [place] [address] Obstruction Intestinal (HCC); Resection Small Bowel Status Post Social History Tobacco Use Types Packs/Day Years Used Date Smoking Tobacco: Former Cigarettes 0 06/26/1966 - 04/24/1980 Smokeless Tobacco: Never Alcohol Use Standard Drinks/Week Comments Yes 12 (1 standard drink = 0.6 oz pu re alcohol) [facility] Utilities Answer Date Recorded In the past 12 months has e [employer], oil, or water [employer] threatened to shut off services in your [...] your living situation today? I have a [facility] place to live 09/17/2024 Sex and Gender Information Value Date Recorded Sex Assigned at Male 04/20/2024 9:38 AM CDT Legal Sex Male 9:54 AM VEST BUSHELER Gender Identity Male 04/20/2024 9:38 AM CDT [...] with ease; mild erythema, no drainage noted; CERTIFIED DIABETES EDUCATOR Extremities: warm and well perfused ASSESSMENT / [...]
--- OUTSIDE RECORDS SUMMARY | 2024-11-10 19:47 | XMS_ITS | Encounter Summary ---
Author Organization [facility] Address [address] [place] [address] Care Team Providers Care Economic Geographer Name Role Phone Unavailable Primary Care Provider Unavailabl e Reason for Visit * Reason Comments Other PVR * Outpatient (Routine) - Closed Specialty Diagnoses / Procedures Referred By Drew warren Referred To Contact Diagnoses Injury Bladder Initial Neobladder Status Post Procedures URO Residual urine - ultrasound Tiffany Toure M.D., M.S. [address] [place] [phone] Phone: tel: fax: [facility] Referral ID Status Reason Start Date Expiration Date Visits Re quested Visits Authorized [id number] Closed 10/08/2024 01/08/2026 1 1 Encounter Details Date Type Department Care Team (Late st Contact Info) Description 10/08/2024 2:30 PM CDT Procedure visit Department of Urology in [place], [place] [address] [place] [phone] Tiffany Toure M.D., M.S. [address] [place] [phone] Hannah Tafoya R.N. [address] [place] [phone] Injury Bladder Initial; Neobladder Status Post Social History Tobacco Use Types Packs/Day Years Used Date Smoking Tobacco: Former Cigarettes 0 06/26/1966 - 04/24/1980 Smokeless Tobacco: Never Alcohol Use Standard Drinks/Week Comments Yes 12 (1 standard drink = 0.6 oz pu re alcohol) [facility] Utilities Answer Date Recorded In the past 12 months has th e [employer], [employer], oil, or water [employer] threatened to shut off services in your [...] AM CDT Legal Sex Male 9:54 AM PRESS SETUP OPERATOR Gender Identity Male 04/20/2024 9:38 AM [...]
--- OUTSIDE RECORDS SUMMARY | 2024-11-10 19:47 | XMS_ITS | Encounter Summary ---
Author Organization [facility] Address [address] [place] [address] Care Team Providers Care Sap Solution Manager Consultant Name Role Phone Unavailable Primary Care Provider Unavailabl e Reason for Visit * Outpatient (Routine) - Closed Specialty Diagnoses / Procedures Referred By Drew warren Referred To Contact Urology Diagnoses Obstruction Intestinal (HCC) Tiffany Toure M.D., M.S. [address] [place] [phone] Phone: tel: fax: Eusebia Dhaliwal M.D. [address] [place] [phone] Phone: tel: fax: Referral ID Status Reason Start Date Expiration Date Visits Re quested Visits Authorized [id number] Closed 09/17/2024 03/19/2026 1 1 Encounter Details Date Type Department Care Team (Late st Contact Info) Description 10/08/2024 10:30 AM CDT Office Visit Department of Urology in [place], [place] [address] [place] [phone] Eusebia Dhaliwal M.D. [address] [place] [phone] Injury Bladder Initial (Primary Dx); Neobladder Status Post; Obstruction Intestinal (HCC) Social History Tobacco Use Types Packs/Day Years Used Date Smoking Tobacco: Former Cigarettes 0 06/26/1966 - 04/24/1980 Smokeless Tobacco: Never Alcohol Use Standard Drinks/Week Comments Yes 12 (1 standard drink = 0.6 oz pu re alcohol) [facility] Utilities Answer Date Recorded In the past 12 months has th e [employer], gas, oil, or water [employer] threatened to shut off services in your [...] AM CDT Legal Sex Male 9:54 AM MILITARY LAWYER Gender Identity Male 04/20/2024 9:38 AM CDT [...]
--- OUTSIDE RECORDS SUMMARY | 2024-11-10 19:47 | XMS_ITS | Clinical Summary ---
Author Organization [facility] Address [address] [place] [address] Care Team Providers Care Silviculturist Name Role Phone Unavailable Primary Care Provider Unavailabl e Source Comments Patient records contain information from all sites at [facility]. For routine questions regarding patient records, call [phone] during business hours, M-F 8:00 AM - 5:00 PM Central Time. Record requests for emergency care only can be directed to [phone] at any time.[facility] Allergies Active Allergy Reactions Criticality Noted [...] Intestinal 05/27/2024 Atherosclerotic Heart Diseas e Of [place] Coronary Artery Without Angina Pectoris 09/09/2016 Overview [...] Trauma Critical Care and General Surgery in [place], [place] [address] [place] [phone] Hetal Parker, JUANCHO, C.N.P., M.S.N. Leidy Escalona, C.N.P., R.N. Obstruction Intestinal (HCC); Resection Small Bowel Status Post 10/08/2024 2:30 PM CDT Procedure visit Department of Urology in [place], [place] [address] [place] [phone] Tiffany Toure M.D., M.Hannah Knox, R.N. Injury Bladder Initial; Neobladder Status Post 10/08/2024 1:00 PM CDT Procedure visit Department of Urology in [place], [place] [address] [place] [phone] Tiffany Toure M.D., M.aJtin. Hannah Tafoya R.N. Injury Bladder Initial (Primary Dx); Obstruction Intestinal (HCC); Neobladder Status Post 10/08/2024 10:30 AM CDT Office Visit Department of Urology in [place], [place] [address] [place] [phone] Eusebia Dhaliwal M.D. Injury Bladder Initial (Primary Dx); Neobladder Status Post; Obstruction Intestinal (HCC) 10/08/2024 9:00 AM CDT - 10/08/2024 11:59 PM CDT Hospital Encounter Department of Radiology, [facility], in [place], [place] [address] [place] [phone] William Briggs M.D. Resection Small Bowel Status Post Discharge Disposition: Home or Self Care 10/08/2024 7:13 AM CDT - 10/08/2024 8:59 AM CDT Hospital Encounter Department of Radiology, [facility], in [place], [place] [address] [place] [phone] Zeinab Frederick M.D. Personal History Of Malignant Neoplasm Of Bladder Discharge Disposition: Home or Self Care 09/24/2024 Clinical Communication [facility] [address] [place] [phone] Hetal Parker, JUANCHO, C.N.P., M.S.N. Post-op Follow-up 09/21/2024 7:55 PM CDT Ancillary Procedure Department of Trauma and Surgery 09/17/2024 Orders Only Department of Urology in [address] [phone] Zeinab Frederick M.D. Personal History Of Malignant Neoplasm Of Bladder (Primary Dx) 09/17/2024 Clinical Communication [facility] [address] [place] [phone] Georgina Vicente 09/16/2024 8:39 AM CDT Anesthesia Event [facility] [place] [address] [place] [phone] Ashely Hines M.D. 09/16/2024 7:45 AM CDT - 09/16/2024 12:15 PM CDT Surgery [facility] OR [address] [place] [phone] William Briggs M.D. ROBOTIC-ASSISTED ABDOMINAL EXPLORATION, CONVERSION TO OPEN LAPAROTOMY, LYSIS OF ADHESIONS >90 MINUTES; REPAIR OF CYSTOTOMY; SMALL BOWEL RESECTION 09/16/2024 6:35 AM CDT Ancillary Procedure Department of General Surgery 09/16/2024 6:15 AM CDT - 09/25/2024 10:54 AM CDT Hospital Encounter [facility], Fourth Floor [address] [place] [phone] William Briggs M.D. Resection Small Bowel Status [...] 0.6 oz pu re alcohol) 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 at [facility] Mesh or Patch López 10/06/2026 [id number] / / [id number] Procedures Procedure Name Priority Date/Time Associated Diagnosis [...] LINE INSERTION Routine 09/16/2024 8:45 AM CDT NE ARTL CATH/CNULA MONITOR PERC Routine 09/16/2024 8:45 [...] catheter in thebladder. us William Briggs M.D. [facility] DIAGNOSTIC IMAGING PROC EDURES Final Result * [...] ADD -ON Final Result Performing Organization Address [facility]/ZIP Co de Phone Number [facility] [address] [place], [place] [address] [place] [address] * Creatinine, Body Fluid (09/23/2024 1:30 PM [...] transport rates. All other fluids refer to [email or web address] for further interpretive information. This test has been modified from the senior coldfusion developer's instructions. Its performance characteristics were determined by [facility] in a manner consistent with CLIA requirements. This test has not been cleared or approved by the U.S. Food and Drug Administration. Fluid Type, Creatinine Fluid, Abdomen 09/23/2024 1:45 PM CDT DTL Fluid (Abdomen) 09/23/2024 1 :30 PM CDT 09/23/2024 1:55 PM CDT Kathy Moura LAB BODY FLUIDS AND STOO LS ORDERABLES Final Result Performing Organization Address City/[facility]/ZIP Co de Phone Number [facility] [address] [place] [address], [facility] [address] [place] [address] * Cystatin C with Estimated GFR (09/23/2024 [...] Moura LAB BLOOD ADD-ON Final R esult [facility] [address] [place] [address], [facility] [address] [place] [address] * (ABNORMAL) Basic Metabolic Panel (09/23/2024 1:22 PM CDT) Only the most recent of7 resultswithin the time period is included. Pathologist [facility] Potassium, S 3.7 3.6 - 5.2 mmol/L [...] ADD-ON Final R esult Performing Organization Address City/[facility]/ZIP Co de Phone Number [facility] [address] [place] [address], [facility] [address] [place] [address] * Abdomen-Trauma CC And Surgery Image Exam [...] PROCE DURES Final Result Performing Organization Address City/[facility]/ZIP Co de Phone Number [facility] NA * Phosphorus Inorganic (09/21/2024 6:47 AM CDT) Only the most recent of3 resultswithin the time period is included. Phosphorus (Inorganic), S 2.8 2.5 - 4.5 mg/dL 09/21/2024 7:44 AM CDT DTL Blood (Blood, Venous) 09/21/2024 6:47 AM CDT 09/21/2024 7:26 AM CDT us Malu Stone APRN.N.P., D.N.P. LAB BLOOD AD D-ON Final Result Performing Organization Address City/[facility] Co de Phone Number [facility] [address] [place] [address] * Magnesium (09/21/2024 6:47 AM CDT) Only the most recent of3 resultswithin the time period is included. Magnesium, S 2.2 1.7 - 2.3 mg/dL 09/21/2024 7:44 AM CDT DTL Blood (Blood, Venous) 09/21/2024 6:47 AM CDT 09/21/2024 7:26 AM CDT Malu Stone APRN.N.P., D.N.P. 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 Matos catheter with tip in the ileal [...] D.N.P. LAB BLOOD A DD-ON Final Result [facility] [address] [place] [address], [facility] DTL [facility] [address] [place] [address] * DX Abdomen 1 View (09/19/2024 10:54 [...] MUSE QTC Interval 416 ms MUSE R [place] -23 degrees MUSE T Wave [place] 15 degrees MUSE 09/19/2024 7:03 AM CDT 09/19/2024 7:30 AM CDT Impressions MUSE - 09/19/2024 7:30 AM CDT Sinus rhythm with sinus arrhythmia and variable NE intervals One ectopic atrial beat Premature junctional complexes with junctional escape complexes Minimal voltage criteria for LVH, may be normal variant Nonspecific ST abnormality When compared with ECG of 12-Jul-1994 10:27, Significant changes have occurred Revised Report Narrative Procedure Note Kleber Guillen Jr., M.D. - 09/19/2024 IMPRESSION: Sinus rhythm with sinus arrhythmia and variable NE intervals One ectopic atrial beat Premature junctional [...] LAB SURG PATH ORDERABLES Fi nal Result [facility] [address] [place] [address], [facility] 200 [facility] [address] [place] [address] * LDA ANE ENDOTRACHEAL AIRWAY (09/16/2024 8:51 [...] ETT location: oral VL device: glide scope [place] scope blade size: 4 Tube size: 7.5 [...] Hines M.D. ANESTHESIA ORDERABLES Final Result * NE ARTL CATH/CNULA MONITOR PERC, LDA ANE ARTERIAL LINE INSERTION (09/16/2024 8:45 AM CDT) Narrative Awilda Ren M.S.N., R.N. - 09/16/2024 8:45 AM CDT Awilda Ren M.S.N., R.N. 09/16/2024 9:07 AM Invasive Catheter Date/Time: 09/16/2024 8:45 AM Performed by: Awilda Ren M.S.N., R.N. Authorized by: Ashely Hines M.D. Care team members present 1. Ashely Hines M.D. 2. Claudine Floyd APRN, [employer]ANE MAINTENANCE, DNAP 3. Awilda Ren M.S.N., R.NRobbie Location: [...] ORDERAB LES Final Result Performing Organization Address City/[facility]/ZIP Co de Phone Number [facility] [address] [place] [address], [facility] [address] [place] [address] * ROBOTIC-ASSISTED ABDOMINAL EXPLORATION-Surgery Image Exam (09/16/2024 [...] PROCE DURES Final Result Performing Organization Address City/[facility] Co de Phone Number [facility] NA from Last 3 Months Insurance [facility] Advance Directives For more information, please contact: [phone] Documents on File Type Date Recorded Patient Operating Room Assistant Expl anation Advance Directives 07/19/2021 3:13 PM [...] Communication Denise Blanco Spouse Health Care Agent Garfield Blanco Son First Alternate Health Care Agent Alejandra Castellanos Daughter Second Alternate Health Care Agent
[2024-11-10] MEDS: 0.9 % SODIUM CHLORIDE 1000 ml 1,000 ML IV (19:55)
[2024-11-10 19:58] LABS: Basophils Absolute Auto 0.02 K/uL (0.00-0.30); Basophils Percent Auto 0.2 % (0.0-3.0); Eosinophils Absolute Auto 0.06 K/uL (0.00-0.50); Eosinophils Percent Auto 0.6 % (0.0-7.0); Hemoglobin* 14.1 gm/dL (13.5-17.5); Immature Granulocytes Abs Auto 0.01 K/uL (0.00-0.30); Immature Granulocytes Pct Auto 0.1 %; Lymphocytes Percent Auto 11.6 % (20-44); Mean Corpuscular HGB Conc 33 gm/dL (32-36); Mean Corpuscular Hemoglobin 32 pg (26-34); Mean Corpuscular Volume 97 fL (80-100); Monocytes Percent Auto 5.9 % (0.0-11.0); Neutrophils Percent Auto 81.6 % (42.0-72.0); Platelet Count* 223 K/uL (140-440); RDW Coefficient of Variation % 12.3 % (11.5-15.5); Red Blood Count 4.45 m/uL (4.30-5.90); White Blood Count* 10.38 K/uL (4.50-11.00)
[2024-11-10 19:59] LABS: Slide Review Reflex No
[2024-11-10 20:12] LABS: Albumin* 4.6 g/dL (3.3-5.0); Chloride* 105 mmol/L (96-114); Potassium* 3.9 mmol/L (3.6-5.1); Sodium* 138 mmol/L (135-149)
[2024-11-10 20:14] LABS: Blood Urea Nitrogen* 15 mg/dL (7-30); Est. Creatinine Clearance* 65.89; Estimated Glomerular Filt Rate 78 ml/min
[2024-11-10 20:15] LABS: Alanine Aminotransferase* 19 U/L (4-50); Alkaline Phosphatase* 86 U/L (40-150); Anion Gap 9 mEq/L (7-15); Aspartate Amino Transferase* 27 U/L (12-35); Bilirubin Total* 0.8 mg/dL (0.1-1.5); Carbon Dioxide* 24 mmol/L (20-32); Total Protein* 7.9 g/dL (6.0-8.3)
[2024-11-10 20:16] LABS: Calcium* 9.2 mg/dL (8.4-10.6); Glucose* 104 mg/dL (60-115)
[2024-11-10 20:18] LABS: C Reactive Protein* 1.2 mg/dL (0.5-1.0)
[2024-11-10 20:26] LABS: Strep A DNA Probe* NOT DETECTED (Not Detectd)
[2024-11-10 20:39] LABS: PCR FLU A Negative PCR FLU A (Negative); PCR FLU B Negative PCR FLU B (Negative); PCR RSV Negative PCR RSV (Negative); SARS PCR* Negative SARS-CoV-2 (Negative)
[2024-11-10 20:49] LABS: Appearance Urine Clear (Clear); Bilirubin Urine Negative (Negative); Blood Urine Trace-lysed (Negative); Color Urine Yellow (Yellow); Glucose Urine Negative (Negative); Ketones Urine Negative (Negative); Leukocyte Esterase Urine 1+ (Negative); Nitrite Urine Positive (Negative); Protein Urine Negative (Negative); Specific Gravity Urine 1.015 (1.000-1.030); Urobilinogen Urine 0.2 (0.2-1.0); pH Urine 6.5 (5.0-8.5)
[2024-11-10 21:07] LABS: Bacteria Urine Many; RBC Urine 0-2 (0-2)
--- NOTE | 2024-11-10 21:15 | CRLHL7_ITS ---
For Patients: As a result of the Century Cures Act, medical imaging exams and procedure reports are released immediately into your electronic medical record. You may view this report before your referring provider. If you have questions, please contact your health care provider. Indication: Fever, history of bladder cancer Technique: Postcontrast CT of the chest, abdomen, and pelvis with multiplanar reformats following 89 mL Isovue 370 IV. Comparison: None Findings: Chest: Lungs: No consolidation. No effusion. No pneumothorax. Mediastinum: No acute abnormality appreciated. Calcified coronary arterial and aortic atherosclerosis. Mild dilation of the ascending aorta measuring 4.2 centimeters. Lymph nodes: No gross lymphadenopathy. Soft tissues: No acute abnormality appreciated. Bones: No acute abnormality appreciated. Degenerative changes spine and shoulders. Right humeral anchors. Abdomen and Pelvis: Hepatobiliary: No significant parenchymal abnormality is appreciated. Spleen: Unremarkable. Pancreas: No acute abnormality appreciated. Adrenal glands: No acute abnormality appreciated. Kidneys: No significant parenchymal abnormality appreciated. No visualized calculi. No hydronephrosis. Bowel: Small bowel resection and anastomosis. No obstruction. No focal perienteric or pericolonic stranding is appreciated. Vascular: No acute abnormality appreciated. Lymph nodes: No gross lymphadenopathy. Peritoneum: No free air. No free fluid. 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 Soft tissues: No acute abnormality appreciated. Postsurgical changes to the ventral abdominal wall. Bones: No acute fracture. No lytic or blastic lesion. Degenerative changes of the spine and pelvis. Impression: No acute abnormality appreciated. Please note that all CT scans at this facility use dose modulation, iterative reconstruction, and/or weight-based dosing when appropriate to reduce radiation dose to as low as reasonably achievable. Dictated by Maurilio Oliva MD @ 11/10/2024 10:08:28 PM (Electronically Signed)
[2024-11-10] MEDS: cefTRIAXone 1 GM in 0.9 % SODIUM CHLORIDE Mini-bag 100 ML IVPB (21:49)
[2024-11-12 23:11] LABS: Lyme ELISA Reflex 0.33 IV (<=0.90)
[2024-11-13 16:06] LABS: Anaplasma phagocyt PCR Not Detected; Babesia microti by PCR Not Detected; Babesia species by PCR Not Detected; Ehrlichia chaffeensis by PCR Not Detected; Ehrlichia ewingii/canis by PCR Not Detected; Ehrlichia muris-like by PCR Not Detected
== END 2024-11-10 22:45 | disposition home or self-care (01) ==
PROVIDERS: Emergency Medicine; Emergency Provider Family Medicine; PCP Surgery
DX: N39.0 Urinary tract infection, site not specified (principal); R50.9 Fever, unspecified
CPT/HCPCS: 36415; 71045; 71260; 74177; 80053; 81001; 83605; 85025; 86140; 86618; 87040; 87086; 87468; 87469; 87484; 87631; 87651; 87798; 96365; 99284; 99285; J0696; J7030; Q9967